=== PATIENT | female | born 1960 | race Hispanic/Latino ===

== ENCOUNTER 2018-09-08 11:41 | Inpatient (IN) | payer OTHER ==
[~2018-09-08] VITALS: Ht 160 cm; Wt 106.6 kg
[~2018-09-08 11:41] MED LIST: ANASTROZOLE1 MG PO; ASPIR 8181 MG PO; ATORVASTATIN CA20 MG PO; BISOPROLOL FUMAR5 MG PO; BISOPROLOL-HCT1 EAC1 PO; GLYXAMBI PO; MELOXICAM15 MG PO; POTASSIUM CL 225 MEQ PO; TORSEMIDE10 MG PO; TRAMADOL-ACETAMI1 EA PO; ULTRAM 50MG50 MG PO; VITAMIN D1000 UNI1 PO; VITAMIN D250000 UNIT PO; ZEBETA10 MG PO; tylenol PO
--- OUTSIDE RECORDS SUMMARY | 2018-09-08 11:44 | XMS REPORT | Clinical Summary ---
Author Author [facility] Address Unknown Phone Unavailable Care Team Providers Care Senior Executive Compensation Analyst Name Role Phone Rosalva Felixibal Vineet PCP Unavailable Allergies Comments Active Allergy Reactions Severity Noted Date Experiences tingling. Pt states she is allergic to Lipitor (name brand) but not allergic to Atorvastatin (generic). Atorvastatin Other (See 04/11/2016 Comments) Medications End Date Status Medication Sig Dispensed Refills Start Date Active aspirin 81 MG EC tablet Take 81 mg by 0 mouth daily. Active atorvastatin (LIPITOR) 10 Take 10 mg by 0 MG tablet mouth daily. Active cholecalciferol, vitamin Take 5,000 0 D3, 5,000 unit Tab Units by mouth once a week. Active docusate sodium (COLACE) Take 1 60 capsule 0 100 MG capsule capsule (100 7 mg total) by mouth 2 (two) times daily. Active Problems Problem Noted Date Acute pulmonary insufficiency following thoracic surgery 04/13/2016 Morbid (severe) obesity due to excess calories 04/13/2016 Acute blood loss as cause of postoperative anemia 04/13/2016 S/P AVR 04/13/2016 Aortic stenosis 04/11/2016 HTN (hypertension) 04/11/2016 Type 2 diabetes mellitus without complication 04/11/2016 Breast CA 04/11/2016 Social History Date Tobacco Use Types Packs/Day Years Used Never Smoker Alcohol Use Drinks/Week oz/Week Comments No Sex Assigned at Date Recorded Not on file Industry Job Start Date Occupation Not on file Not on file Not on file Travel End Travel History Travel Start No recent travel history available. 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 Manufactur er 10/17/2017 TFGT-23A / [id number] / N/A Valve Tiss Trifecta W/Gld 23mm Valves N/A: Heart [facility] [employer] Tfgt-23a - [id number] MED:CARDIA Implanted: Qty: 1 on 04/12/2016 by Angel Lees MD Results Not on fileafter 09/07/2017 Insurance Payer Benefit Subscriber ID Type Phone Address Plan / Group [employer] xxxxxxxxxx [employer] Advance Directives For more information, please contact: [address] [address] Date Inactivated Comments Code Status Date Activated 04/19/2016 4:19 PM Full Code 04/12/2016 11:05 PM This code status was determined by: 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
--- OUTSIDE RECORDS SUMMARY | 2018-09-08 11:45 | XMS REPORT ---
Author Author [facility] Address Unknown Phone Unavailable Care Team Providers Care Production Line Manager Name Role Phone YONI SOLOMON Unavailable Unavailable Problems This patient has no known problems. Allergies, Adverse Reactions, Alerts This patient has no known allergies or adverse reactions. Medications This patient has no known medications. Results Test Description Test Time Test Comments Text Results Atomic Results Result Comments POCT-GLUCOSE METER 2016-04-19 08:27:00 POC-GLUCOSE METER (BEAKER) (test lwce=4440) 111 mg/dL 70-110 TESTED AT [facility] [address] [facility] [address] [id number] 07:20:00* Test Item Value Reference Range Comments MAGNESIUM (BEAKER) (test cgyl=138) 1.9 mg/dL 1.6-2.6 BASIC METABOLIC [id number] 07:20:00* Test Item Value Reference Range Comments SODIUM (BEAKER) (test nyck=525) 138 meq/L 136-145 POTASSIUM (BEAKER) (test adlt=118) 4.7 meq/L 3.5-5.1 CHLORIDE (BEAKER) (test dkwx=760) 102 meq/L 98-107 CO2 (BEAKER) (test ehvl=825) 28 meq/L 22-29 BLOOD UREA NITROGEN (BEAKER) (test ccww=885) 10 mg/dL 7-21 CREATININE (BEAKER) (test kdha=710) 0.62 mg/dL 0.57-1.25 GLUCOSE RANDOM (BEAKER) (test byfa=317) 108 mg/dL 70-105 CALCIUM (BEAKER) (test kkcj=350) 9.1 mg/dL 8.4-10.2 EGFR (BEAKER) (test taiu=0640) 99 mL/min/1.73 sq m ESTIMATED GFR IS NOT ACCURATE CREATININE CLEARANCE IN PREDICTING GLOMERULAR FILTRATION RATE. ESTIMATED GFR IS NOT APPLICABLE FOR DIALYSIS PATIENTS. POCT-GLUCOSE [id number] 20:48:00* Test Item Value Reference Range Comments POC-GLUCOSE METER (BEAKER) (test pwfi=8377) 139 mg/dL 70-110 TESTED AT [facility] [address] [facility] [address] POCT-GLUCOSE [id number] 17:56:00* Test Item Value Reference Range Comments POC-GLUCOSE METER (BEAKER) (test nfvo=9090) 135 mg/dL 70-110 TESTED AT [facility] [address] [facility] [address] CBC W/PLT COUNT & AUTO [id number] 12:53:00* Test Item Value Reference Range Comments WHITE BLOOD CELL COUNT (BEAKER) (test ijns=769) 7.9 K/ L 4.0-10.0 RED BLOOD CELL COUNT (BEAKER) (test hmal=090) 3.19 M/ L 4.00-5.00 HEMOGLOBIN (BEAKER) (test tsot=809) 9.9 GM/DL 12.0-15.0 HEMATOCRIT (BEAKER) (test pqwc=625) 29.7 % 36.0-45.0 MEAN CORPUSCULAR VOLUME (BEAKER) (test fsuw=535) 93.4 fL 82.0-99.0 MEAN CORPUSCULAR HEMOGLOBIN (BEAKER) (test yxmq=264) 31.2 pg 27.0-33.0 MEAN CORPUSCULAR HEMOGLOBIN CONC (BEAKER) (test igdf=819) 33.4 GM/DL 32.0-36.0 RED CELL DISTRIBUTION WIDTH (BEAKER) (test ioob=444) 12.8 % 10.3-14.2 PLATELET COUNT (BEAKER) (test yzoi=508) 123 K/CU MM 150-430 MEAN PLATELET VOLUME (BEAKER) (test xrwz=589) 8.8 fL 6.5-10.5 NUCLEATED RED BLOOD CELLS (BEAKER) (test bgxx=623) 0 /100 WBC 0-0 NEUTROPHILS RELATIVE PERCENT (BEAKER) (test mhof=087) 57 % LYMPHOCYTES RELATIVE PERCENT (BEAKER) (test pukq=855) 32 % MONOCYTES RELATIVE PERCENT (BEAKER) (test wsuq=698) 9 % EOSINOPHILS RELATIVE PERCENT (BEAKER) (test gtvi=094) 1 % BASOPHILS RELATIVE PERCENT (BEAKER) (test tyqf=610) 0 % NEUTROPHILS ABSOLUTE COUNT (BEAKER) (test lqzs=822) 4.51 K/ L 1.80-8.00 LYMPHOCYTES ABSOLUTE COUNT (BEAKER) (test xmja=691) 2.56 K/ L 1.48-4.50 MONOCYTES ABSOLUTE COUNT (BEAKER) (test bruz=432) 0.69 K/ L 0.00-1.30 EOSINOPHILS ABSOLUTE COUNT (BEAKER) (test elei=882) 0.10 K/ L 0.00-0.50 BASOPHILS ABSOLUTE COUNT (BEAKER) (test xlqx=088) 0.04 K/ L 0.00-0.20 0.00POCT-GLUCOSE [id number] 12:12:00* Test Item Value Reference Range Comments POC-GLUCOSE METER (BEAKER) (test eyhh=2683) 113 mg/dL 70-110 TESTED AT [place] [id number] [facility] [address] POCT-GLUCOSE [id number] 08:11:00* Test Item Value Reference Range Comments POC-GLUCOSE METER (BEAKER) (test cbnh=4631) 117 mg/dL 70-110 TESTED AT [address] [address] [id number] 06:56:00* Test Item Value Reference Range Comments MAGNESIUM (BEAKER) (test ctvb=383) 1.9 mg/dL 1.6-2.6 BASIC METABOLIC [id number] 06:56:00* Test Item Value Reference Range Comments SODIUM (BEAKER) (test urgj=242) 137 meq/L 136-145 POTASSIUM (BEAKER) (test bbbz=919) 4.4 meq/L 3.5-5.1 CHLORIDE (BEAKER) (test ycho=327) 100 meq/L 98-107 CO2 (BEAKER) (test caxo=259) 29 meq/L 22-29 BLOOD UREA NITROGEN (BEAKER) (test ffno=440) 12 mg/dL 7-21 CREATININE (BEAKER) (test qcou=664) 0.61 mg/dL 0.57-1.25 GLUCOSE RANDOM (BEAKER) (test jqyp=961) 105 mg/dL 70-105 CALCIUM (BEAKER) (test tgoh=924) 8.7 mg/dL 8.4-10.2 EGFR (BEAKER) (test czch=6869) 101 mL/min/1.73 sq m ESTIMATED GFR IS NOT ACCURATE CREATININE CLEARANCE IN PREDICTING GLOMERULAR FILTRATION RATE. ESTIMATED GFR IS NOT APPLICABLE FOR DIALYSIS PATIENTS. POCT-GLUCOSE [id number] 06:54:00* Test Item Value Reference Range Comments POC-GLUCOSE METER (BEAKER) (test jxdp=0136) 129 mg/dL 70-110 TESTED AT [address] [address] POCT-GLUCOSE [id number] 17:36:00* Test Item Value Reference Range Comments POC-GLUCOSE METER (BEAKER) (test tpex=1075) 107 mg/dL 70-110 TESTED AT [address] [address] POCT-GLUCOSE [id number] 12:40:00* Test Item Value Reference Range Comments POC-GLUCOSE METER (BEAKER) (test eurw=1489) 117 mg/dL 70-110 TESTED AT [address] [address] POCT-GLUCOSE [id number] 08:03:00* Test Item Value Reference Range Comments POC-GLUCOSE METER (BEAKER) (test dxpo=3603) 96 mg/dL 70-110 TESTED AT [address] [address] [id number] 05:52:00* Test Item Value Reference Range Comments MAGNESIUM (BEAKER) (test lfke=178) 2.0 mg/dL 1.6-2.6 BASIC METABOLIC [id number] 05:52:00* Test Item Value Reference Range Comments SODIUM (BEAKER) (test tlji=865) 140 meq/L 136-145 POTASSIUM (BEAKER) (test omdn=174) 3.5 meq/L 3.5-5.1 CHLORIDE (BEAKER) (test uroq=461) 100 meq/L 98-107 CO2 (BEAKER) (test wsvb=729) 27 meq/L 22-29 BLOOD UREA NITROGEN (BEAKER) (test pozy=788) 12 mg/dL 7-21 CREATININE (BEAKER) (test ljql=765) 0.63 mg/dL 0.57-1.25 GLUCOSE RANDOM (BEAKER) (test mpri=969) 105 mg/dL 70-105 CALCIUM (BEAKER) (test czub=980) 8.7 mg/dL 8.4-10.2 EGFR (BEAKER) (test dyjr=1087) 97 mL/min/1.73 sq m ESTIMATED GFR IS NOT ACCURATE CREATININE CLEARANCE IN PREDICTING GLOMERULAR FILTRATION RATE. ESTIMATED GFR IS NOT APPLICABLE FOR DIALYSIS PATIENTS. POCT-GLUCOSE [id number] 21:56:00* Test Item Value Reference Range Comments POC-GLUCOSE METER (BEAKER) (test lnoc=6987) 145 mg/dL 70-110 TESTED AT [facility] [address] [facility] [address] POCT-GLUCOSE [id number] 16:58:00* Test Item Value Reference Range Comments POC-GLUCOSE METER (BEAKER) (test trlo=4152) 129 mg/dL 70-110 TESTED AT [facility] [address] [facility] [address] CBC W/PLT COUNT & AUTO [id number] 16:56:00* Test Item Value Reference Range Comments WHITE BLOOD CELL COUNT (BEAKER) (test ifio=079) 6.2 K/ L 4.0-10.0 RED BLOOD CELL COUNT (BEAKER) (test cmyt=804) 3.24 M/ L 4.00-5.00 HEMOGLOBIN (BEAKER) (test jvix=281) 9.5 GM/DL 12.0-15.0 HEMATOCRIT (BEAKER) (test oiac=883) 29.0 % 36.0-45.0 MEAN CORPUSCULAR VOLUME (BEAKER) (test dbhm=433) 89.6 fL 82.0-99.0 MEAN CORPUSCULAR HEMOGLOBIN (BEAKER) (test fpgv=076) 29.5 pg 27.0-33.0 MEAN CORPUSCULAR HEMOGLOBIN CONC (BEAKER) (test vmaw=495) 32.9 GM/DL 32.0-36.0 RED CELL DISTRIBUTION WIDTH (BEAKER) (test hzmz=780) 13.6 % 10.3-14.2 PLATELET COUNT (BEAKER) (test bazu=250) 103 K/CU MM 150-430 MEAN PLATELET VOLUME (BEAKER) (test rwad=438) 8.1 fL 6.5-10.5 NUCLEATED RED BLOOD CELLS (BEAKER) (test zzcp=424) 0 /100 WBC 0-0 NEUTROPHILS RELATIVE PERCENT (BEAKER) (test rulr=552) 59 % LYMPHOCYTES RELATIVE PERCENT (BEAKER) (test vmkn=275) 30 % MONOCYTES RELATIVE PERCENT (BEAKER) (test gzdf=145) 10 % EOSINOPHILS RELATIVE PERCENT (BEAKER) (test bcyq=424) 1 % BASOPHILS RELATIVE PERCENT (BEAKER) (test egmq=271) 1 % NEUTROPHILS ABSOLUTE COUNT (BEAKER) (test thyb=482) 3.63 K/ L 1.80-8.00 LYMPHOCYTES ABSOLUTE COUNT (BEAKER) (test mpot=076) 1.83 K/ L 1.48-4.50 MONOCYTES ABSOLUTE COUNT (BEAKER) (test azyt=235) 0.61 K/ L 0.00-1.30 EOSINOPHILS ABSOLUTE COUNT (BEAKER) (test fycp=706) 0.08 K/ L 0.00-0.50 BASOPHILS ABSOLUTE COUNT (BEAKER) (test gmfr=872) 0.04 K/ L 0.00-0.20 [id number] 06:34:00* Test Item Value Reference Range Comments MAGNESIUM (BEAKER) (test igpm=316) 1.6 mg/dL 1.6-2.6 BASIC METABOLIC [id number] 06:34:00* Test Item Value Reference Range Comments SODIUM (BEAKER) (test wgyw=254) 138 meq/L 136-145 POTASSIUM (BEAKER) (test ncws=507) 3.0 meq/L 3.5-5.1 CHLORIDE (BEAKER) (test icjn=791) 100 meq/L 98-107 CO2 (BEAKER) (test lmev=841) 28 meq/L 22-29 BLOOD UREA NITROGEN (BEAKER) (test bwnv=779) 12 mg/dL 7-21 CREATININE (BEAKER) (test qywr=704) 0.60 mg/dL 0.57-1.25 GLUCOSE RANDOM (BEAKER) (test cbrb=299) 99 mg/dL 70-105 CALCIUM (BEAKER) (test ovud=500) 8.3 mg/dL 8.4-10.2 EGFR (BEAKER) (test dxnf=6090) 103 mL/min/1.73 sq m ESTIMATED GFR IS NOT ACCURATE CREATININE CLEARANCE IN PREDICTING GLOMERULAR FILTRATION RATE. ESTIMATED GFR IS NOT APPLICABLE FOR DIALYSIS PATIENTS. CBC W/PLT COUNT & AUTO [id number] 05:54:00* Test Item Value Reference Range Comments WHITE BLOOD CELL COUNT (BEAKER) (test eucg=873) 6.5 K/ L 4.0-10.0 RED BLOOD CELL COUNT (BEAKER) (test tvak=753) 2.92 M/ L 4.00-5.00 HEMOGLOBIN (BEAKER) (test lptg=306) 8.9 GM/DL 12.0-15.0 HEMATOCRIT (BEAKER) (test exzj=979) 26.8 % 36.0-45.0 MEAN CORPUSCULAR VOLUME (BEAKER) (test nckn=401) 91.7 fL 82.0-99.0 MEAN CORPUSCULAR HEMOGLOBIN (BEAKER) (test grwd=099) 30.4 pg 27.0-33.0 MEAN CORPUSCULAR HEMOGLOBIN CONC (BEAKER) (test kcth=089) 33.2 GM/DL 32.0-36.0 RED CELL DISTRIBUTION WIDTH (BEAKER) (test agum=557) 13.4 % 10.3-14.2 PLATELET COUNT (BEAKER) (test bbat=211) 67 K/CU MM 150-430 MEAN PLATELET VOLUME (BEAKER) (test deum=986) 8.4 fL 6.5-10.5 NUCLEATED RED BLOOD CELLS (BEAKER) (test icnz=162) 0 /100 WBC 0-0 NEUTROPHILS RELATIVE PERCENT (BEAKER) (test qubs=644) 62 % LYMPHOCYTES RELATIVE PERCENT (BEAKER) (test obsd=997) 27 % MONOCYTES RELATIVE PERCENT (BEAKER) (test pqla=084) 9 % EOSINOPHILS RELATIVE PERCENT (BEAKER) (test leoo=878) 2 % BASOPHILS RELATIVE PERCENT (BEAKER) (test yyhx=434) 0 % NEUTROPHILS ABSOLUTE COUNT (BEAKER) (test wqkq=077) 4.01 K/ L 1.80-8.00 LYMPHOCYTES ABSOLUTE COUNT (BEAKER) (test lwij=426) 1.73 K/ L 1.48-4.50 MONOCYTES ABSOLUTE COUNT (BEAKER) (test vrnc=217) 0.58 K/ L 0.00-1.30 EOSINOPHILS ABSOLUTE COUNT (BEAKER) (test ypcb=812) 0.14 K/ L 0.00-0.50 BASOPHILS ABSOLUTE COUNT (BEAKER) (test riwr=757) 0.02 K/ L 0.00-0.20 [id number] 02:01:00* Test Item Value Reference Range Comments MAGNESIUM (BEAKER) (test gplg=781) 1.8 mg/dL 1.6-2.6 BASIC METABOLIC [id number] 02:01:00* Test Item Value Reference Range Comments SODIUM (BEAKER) (test epqz=613) 138 meq/L 136-145 POTASSIUM (BEAKER) (test swuq=571) 3.9 meq/L 3.5-5.1 CHLORIDE (BEAKER) (test lyre=957) 104 meq/L 98-107 CO2 (BEAKER) (test zvaa=001) 27 meq/L 22-29 BLOOD UREA NITROGEN (BEAKER) (test ttii=805) 14 mg/dL 7-21 CREATININE (BEAKER) (test apql=849) 0.60 mg/dL 0.57-1.25 GLUCOSE RANDOM (BEAKER) (test peys=007) 108 mg/dL 70-105 CALCIUM (BEAKER) (test wbji=803) 8.1 mg/dL 8.4-10.2 EGFR (BEAKER) (test wtbo=9620) 103 mL/min/1.73 sq m ESTIMATED GFR IS NOT ACCURATE CREATININE CLEARANCE IN PREDICTING GLOMERULAR FILTRATION RATE. ESTIMATED GFR IS NOT APPLICABLE FOR DIALYSIS PATIENTS. POCT-GLUCOSE [id number] 22:02:00* Test Item Value Reference Range Comments POC-GLUCOSE METER (BEAKER) (test bkfi=0018) 135 mg/dL 70-110 TESTED AT [address] [address] POCT-GLUCOSE [id number] 18:19:00* Test Item Value Reference Range Comments POC-GLUCOSE METER (BEAKER) (test agag=7322) 183 mg/dL 70-110 TESTED AT [address] [address] POCT-GLUCOSE [id number] 12:05:00* Test Item Value Reference Range Comments POC-GLUCOSE METER (BEAKER) (test fybq=7891) 133 mg/dL 70-110 TESTED AT [address] [address] POCT-GLUCOSE [id number] 07:49:00* Test Item Value Reference Range Comments POC-GLUCOSE METER (BEAKER) (test lgsp=8952) 160 mg/dL 70-110 TESTED AT [address] [address] BASIC METABOLIC [id number] 04:39:00* Test Item Value Reference Range Comments SODIUM (BEAKER) (test yvuf=452) 140 meq/L 136-145 POTASSIUM (BEAKER) (test wvuk=077) 3.9 meq/L 3.5-5.1 CHLORIDE (BEAKER) (test fxsn=574) 109 meq/L 98-107 CO2 (BEAKER) (test znjd=810) 24 meq/L 22-29 BLOOD UREA NITROGEN (BEAKER) (test zlkv=753) 16 mg/dL 7-21 CREATININE (BEAKER) (test itqc=810) 0.70 mg/dL 0.57-1.25 GLUCOSE RANDOM (BEAKER) (test wehd=344) 141 mg/dL 70-105 CALCIUM (BEAKER) (test odup=754) 8.1 mg/dL 8.4-10.2 EGFR (BEAKER) (test nzwk=6849) 86 mL/min/1.73 sq m ESTIMATED GFR IS NOT ACCURATE CREATININE CLEARANCE IN PREDICTING GLOMERULAR FILTRATION RATE. ESTIMATED GFR IS NOT APPLICABLE FOR DIALYSIS PATIENTS. CBC W/PLT COUNT & AUTO [id number] 04:14:00* Test Item Value Reference Range Comments WHITE BLOOD CELL COUNT (BEAKER) (test yint=096) 6.4 K/ L 4.0-10.0 RED BLOOD CELL COUNT (BEAKER) (test snis=655) 2.95 M/ L 4.00-5.00 HEMOGLOBIN (BEAKER) (test njra=717) 9.3 GM/DL 12.0-15.0 HEMATOCRIT (BEAKER) (test jtog=055) 27.5 % 36.0-45.0 MEAN CORPUSCULAR VOLUME (BEAKER) (test llrk=371) 93.0 fL 82.0-99.0 MEAN CORPUSCULAR HEMOGLOBIN (BEAKER) (test ufbv=724) 31.4 pg 27.0-33.0 MEAN CORPUSCULAR HEMOGLOBIN CONC (BEAKER) (test pqzy=348) 33.8 GM/DL 32.0-36.0 RED CELL DISTRIBUTION WIDTH (BEAKER) (test quxo=878) 12.9 % 10.3-14.2 PLATELET COUNT (BEAKER) (test duqf=184) 59 K/CU MM 150-430 MEAN PLATELET VOLUME (BEAKER) (test uclj=112) 8.6 fL 6.5-10.5 NUCLEATED RED BLOOD CELLS (BEAKER) (test qsrt=100) 0 /100 WBC 0-0 NEUTROPHILS RELATIVE PERCENT (BEAKER) (test cqzf=203) 62 % LYMPHOCYTES RELATIVE PERCENT (BEAKER) (test vwxh=362) 22 % MONOCYTES RELATIVE PERCENT (BEAKER) (test icqh=694) 15 % EOSINOPHILS RELATIVE PERCENT (BEAKER) (test tfch=331) 1 % BASOPHILS RELATIVE PERCENT (BEAKER) (test nmxt=333) 1 % NEUTROPHILS ABSOLUTE COUNT (BEAKER) (test hqre=229) 3.95 K/ L 1.80-8.00 LYMPHOCYTES ABSOLUTE COUNT (BEAKER) (test gvor=543) 1.41 K/ L 1.48-4.50 MONOCYTES ABSOLUTE COUNT (BEAKER) (test hmaq=192) 0.96 K/ L 0.00-1.30 EOSINOPHILS ABSOLUTE COUNT (BEAKER) (test erky=037) 0.04 K/ L 0.00-0.50 BASOPHILS ABSOLUTE COUNT (BEAKER) (test ryyc=262) 0.03 K/ L 0.00-0.20 0.00POCT-GLUCOSE [id number] 18:21:00* Test Item Value Reference Range Comments POC-GLUCOSE METER (BEAKER) (test trwh=1782) 148 mg/dL 70-110 TESTED AT [address] [address] POCT-GLUCOSE [id number] 17:29:00* Test Item Value Reference Range Comments POC-GLUCOSE METER (BEAKER) (test yvyi=5437) 147 mg/dL 70-110 TESTED AT [address] [address] POCT-GLUCOSE [id number] 15:32:00* Test Item Value Reference Range Comments POC-GLUCOSE METER (BEAKER) (test hwql=1249) 133 mg/dL 70-110 TESTED AT [address] [address] TROPONIN [id number] 10:37:00* Test Item Value Reference Range Comments TROPONIN I (BEAKER) (test uvoi=079) 5.15 ng/mL 0.00-0.03 Effective 12/24/2013: Reference Range ChangeNew: 0.00-0.03 Previous 0.00-0.15T roponin I (TnI) levels must be interpreted in the context of the presenting symp toms and the clinical findings. Elevated TnI levels indicate myocardial damage, but are not specific for ischemic heart disease. Elevated TnI levels are seen in patients with other cardiac conditions (including myocarditis and congestive he art failure), and slight TnI elevations occur in patients with other conditions, including sepsis, renal failure, acidosis, acute neurological disease, and pers istent tachyarrhythmia.CREATINE KINASE (CK), TOTAL AND [id number] 10:11:00* Test Item Value Reference Range Comments CREATINE KINASE TOTAL (BEAKER) (test qxjt=415) 455 U/L 29-200 CREATINE KINASE-MB (BEAKER) (test shhp=901) 13.0 ng/mL 0.0-6.6 CREATINE KINASE-MB INDEX (BEAKER) (test wajj=944) 2.9 % Effective 12/24/2013: CK-MB Reference Range ChangeNew: 0.0-6.6 Previous: 0.0- 4.9CK-MB Reference Range:<6.7 Normal6.7-10.0 Borderline>10.0 Abnormal BLOOD GAS, [id number] 09:20:00* Test Item Value Reference Range Comments PH ARTERIAL (BEAKER) (test zpbx=823) 7.39 7.35-7.45 PCO2 ARTERIAL (BEAKER) (test pjex=426) 44 mmHg 35-45 PO2 ARTERIAL (BEAKER) (test ttis=708) 116 mmHg 80-90 O2 SATURATION ARTERIAL (BEAKER) (test qtxb=002) 98.1 % 96.0-97.0 HCO3 ARTERIAL (BEAKER) (test hxnp=612) 26 mmol/L 21-29 BASE EXCESS ARTERIAL (BEAKER) (test zela=447) 0.8 mmol/L -2.0-3.0 PATIENT TEMPERATURE (BEAKER) (test zhso=5557) 37.9 C FIO2 (BEAKER) (test ewtw=2664) 36.0 % POCT-GLUCOSE [id number] 09:15:00* Test Item Value Reference Range Comments POC-GLUCOSE METER (BEAKER) (test dmss=0459) 115 mg/dL 70-110 TESTED AT [address] [address] POCT-GLUCOSE [id number] 06:16:00* Test Item Value Reference Range Comments POC-GLUCOSE METER (BEAKER) (test taki=1367) 148 mg/dL 70-110 TESTED AT [address] [address] POCT-GLUCOSE [id number] 06:16:00* Test Item Value Reference Range Comments POC-GLUCOSE METER (BEAKER) (test lvjz=4826) 167 mg/dL 70-110 TESTED AT [place] [id number] [facility] [address] POCT-GLUCOSE [id number] 06:16:00* Test Item Value Reference Range Comments POC-GLUCOSE METER (BEAKER) (test ipuk=9295) 158 mg/dL 70-110 TESTED AT [place] [id number] [facility] [address] BLOOD GAS, [id number] 04:38:00* Test Item Value Reference Range Comments PH ARTERIAL (BEAKER) (test pkse=942) 7.31 7.35-7.45 PCO2 ARTERIAL (BEAKER) (test iflv=665) 47 mmHg 35-45 PO2 ARTERIAL (BEAKER) (test zqqe=649) 255 mmHg 80-90 O2 SATURATION ARTERIAL (BEAKER) (test xbph=418) 99.5 % 96.0-97.0 HCO3 ARTERIAL (BEAKER) (test nepq=313) 22 mmol/L 21-29 BASE EXCESS ARTERIAL (BEAKER) (test hxxl=240) -3.4 mmol/L -2.0-3.0 PATIENT TEMPERATURE (BEAKER) (test kpcs=2116) 38.5 C FIO2 (BEAKER) (test esvy=2312) 20.0 % BASIC METABOLIC [id number] 03:01:00* Test Item Value Reference Range Comments SODIUM (BEAKER) (test eimi=049) 142 meq/L 136-145 POTASSIUM (BEAKER) (test qgyp=992) 3.7 meq/L 3.5-5.1 CHLORIDE (BEAKER) (test uypj=493) 112 meq/L 98-107 CO2 (BEAKER) (test ssnc=461) 23 meq/L 22-29 BLOOD UREA NITROGEN (BEAKER) (test xlkj=389) 14 mg/dL 7-21 CREATININE (BEAKER) (test bfgo=660) 0.73 mg/dL 0.57-1.25 GLUCOSE RANDOM (BEAKER) (test bzmj=866) 170 mg/dL 70-105 CALCIUM (BEAKER) (test odjz=643) 8.4 mg/dL 8.4-10.2 EGFR (BEAKER) (test colz=4607) 82 mL/min/1.73 sq m ESTIMATED GFR IS NOT ACCURATE CREATININE CLEARANCE IN PREDICTING GLOMERULAR FILTRATION RATE. ESTIMATED GFR IS NOT APPLICABLE FOR DIALYSIS PATIENTS. CBC W/PLT COUNT & AUTO [id number] 03:00:00* Test Item Value Reference Range Comments WHITE BLOOD CELL COUNT (BEAKER) (test eeqs=512) 11.4 K/ L 4.0-10.0 RED BLOOD CELL COUNT (BEAKER) (test dlmu=432) 3.31 M/ L 4.00-5.00 HEMOGLOBIN (BEAKER) (test wmzw=320) 10.3 GM/DL 12.0-15.0 HEMATOCRIT (BEAKER) (test fnan=984) 29.9 % 36.0-45.0 MEAN CORPUSCULAR VOLUME (BEAKER) (test fjhx=969) 90.3 fL 82.0-99.0 MEAN CORPUSCULAR HEMOGLOBIN (BEAKER) (test qkci=277) 31.0 pg 27.0-33.0 MEAN CORPUSCULAR HEMOGLOBIN CONC (BEAKER) (test holo=422) 34.3 GM/DL 32.0-36.0 RED CELL DISTRIBUTION WIDTH (BEAKER) (test oiad=207) 13.8 % 10.3-14.2 PLATELET COUNT (BEAKER) (test dlmz=323) 69 K/CU MM 150-430 MEAN PLATELET VOLUME (BEAKER) (test dkvi=815) 8.2 fL 6.5-10.5 NUCLEATED RED BLOOD CELLS (BEAKER) (test rsyg=805) 0 /100 WBC 0-0 NEUTROPHILS RELATIVE PERCENT (BEAKER) (test pody=564) 72 % LYMPHOCYTES RELATIVE PERCENT (BEAKER) (test xuot=908) 19 % MONOCYTES RELATIVE PERCENT (BEAKER) (test vvhf=356) 9 % EOSINOPHILS RELATIVE PERCENT (BEAKER) (test owqr=302) 0 % BASOPHILS RELATIVE PERCENT (BEAKER) (test ptwl=689) 0 % NEUTROPHILS ABSOLUTE COUNT (BEAKER) (test cvdg=134) 8.19 K/ L 1.80-8.00 LYMPHOCYTES ABSOLUTE COUNT (BEAKER) (test fqkl=367) 2.12 K/ L 1.48-4.50 MONOCYTES ABSOLUTE COUNT (BEAKER) (test gvww=201) 1.07 K/ L 0.00-1.30 EOSINOPHILS ABSOLUTE COUNT (BEAKER) (test igvd=063) 0.04 K/ L 0.00-0.50 BASOPHILS ABSOLUTE COUNT (BEAKER) (test bhfq=118) 0.01 K/ L 0.00-0.20 0.00BLOOD GAS, [id number] 02:36:00* Test Item Value Reference Range Comments PH ARTERIAL (BEAKER) (test qxfr=327) 7.34 7.35-7.45 PCO2 ARTERIAL (BEAKER) (test naju=573) 44 mmHg 35-45 PO2 ARTERIAL (BEAKER) (test drer=013) 135 mmHg 80-90 O2 SATURATION ARTERIAL (BEAKER) (test btsf=389) 98.5 % 96.0-97.0 HCO3 ARTERIAL (BEAKER) (test paxb=272) 23 mmol/L 21-29 BASE EXCESS ARTERIAL (BEAKER) (test hhgn=520) -2.7 mmol/L -2.0-3.0 PATIENT TEMPERATURE (BEAKER) (test xnja=3746) 37.0 C FIO2 (BEAKER) (test fuhe=2868) 40.0 % BLOOD GAS, [id number] 00:41:00* Test Item Value Reference Range Comments PH ARTERIAL (BEAKER) (test geuk=349) 7.40 7.35-7.45 PCO2 ARTERIAL (BEAKER) (test hydw=518) 37 mmHg 35-45 PO2 ARTERIAL (BEAKER) (test ngov=713) 226 mmHg 80-90 O2 SATURATION ARTERIAL (BEAKER) (test boqv=715) 99.5 % 96.0-97.0 HCO3 ARTERIAL (BEAKER) (test vyqv=938) 23 mmol/L 21-29 BASE EXCESS ARTERIAL (BEAKER) (test pyon=117) -2.2 mmol/L -2.0-3.0 PATIENT TEMPERATURE (BEAKER) (test dquk=8730) 35.4 C FIO2 (BEAKER) (test zpud=8137) 60.0 % OXYGEN SATURATION, [id number] 00:40:00* Test Item Value Reference Range Comments O2 SATURATION (MEASURED) (BEAKER) (test rktw=6006) 72.1 % TROPONIN [id number] 00:07:00* Test Item Value Reference Range Comments TROPONIN I (BEAKER) (test pahp=851) 4.33 ng/mL 0.00-0.03 Effective 12/24/2013: Reference Range ChangeNew: 0.00-0.03 Previous 0.00-0.15T roponin I (TnI) levels must be interpreted in the context of the presenting symp toms and the clinical findings. Elevated TnI levels indicate myocardial damage, but are not specific for ischemic heart disease. Elevated TnI levels are seen in patients with other cardiac conditions (including myocarditis and congestive he art failure), and slight TnI elevations occur in patients with other conditions, including sepsis, renal failure, acidosis, acute neurological disease, and pers istent tachyarrhythmia.CREATINE KINASE (CK), TOTAL AND [id number] 00:00:00* Test Item Value Reference Range Comments CREATINE KINASE TOTAL (BEAKER) (test rhrf=071) 371 U/L 29-200 CREATINE KINASE-MB (BEAKER) (test bhpm=970) 30.0 ng/mL 0.0-6.6 CREATINE KINASE-MB INDEX (BEAKER) (test tmwn=610) 8.1 % Effective 12/24/2013: CK-MB Reference Range ChangeNew: 0.0-6.6 Previous: 0.0- 4.9CK-MB Reference Range:<6.7 Normal6.7-10.0 Borderline>10.0 Abnormal [id number] 23:53:00* Test Item Value Reference Range Comments MAGNESIUM (BEAKER) (test hlzz=518) 2.0 mg/dL 1.6-2.6 Specimen slightly hemolyzed [id number] 23:53:00* Test Item Value Reference Range Comments POTASSIUM (BEAKER) (test hirt=843) 3.6 meq/L 3.5-5.1 Specimen slightly hemolyzed [id number] 23:53:00* Test Item Value Reference Range Comments GLUCOSE RANDOM (BEAKER) (test gnqf=592) 187 mg/dL 70-105 Effective 12/24/2013: Reference Range Change-Adult onlyNew: 70-105 Previous: 70-110BASIC METABOLIC [id number] 23:53:00* Test Item Value Reference Range Comments SODIUM (BEAKER) (test runb=439) 141 meq/L 136-145 POTASSIUM (BEAKER) (test krqr=376) 3.6 meq/L 3.5-5.1 Specimen slightly hemolyzed CHLORIDE (BEAKER) (test yzdx=781) 112 meq/L 98-107 CO2 (BEAKER) (test dyly=358) 21 meq/L 22-29 BLOOD UREA NITROGEN (BEAKER) (test xdgq=139) 14 mg/dL 7-21 CREATININE (BEAKER) (test dpmn=583) 0.67 mg/dL 0.57-1.25 Specimen slightly hemolyzed GLUCOSE RANDOM (BEAKER) (test xkmx=158) 187 mg/dL 70-105 CALCIUM (BEAKER) (test pnha=765) 8.8 mg/dL 8.4-10.2 EGFR (BEAKER) (test zcln=7796) 90 mL/min/1.73 sq m ESTIMATED GFR IS NOT ACCURATE CREATININE CLEARANCE IN PREDICTING GLOMERULAR FILTRATION RATE. ESTIMATED GFR IS NOT APPLICABLE FOR DIALYSIS PATIENTS. PT/[id number] 23:45:00* Test Item Value Reference Range Comments PROTIME (BEAKER) (test fcoo=605) 23.0 seconds 11.7-14.7 INR (BEAKER) (test xdlv=335) 2.0 <=5.9 PARTIAL THROMBOPLASTIN TIME (BEAKER) (test pygt=446) 41.1 seconds 22.5-36.0 RECOMMENDED COUMADIN/WARFARIN INR THERAPY RANGESSTANDARD DOSE: 2.0 - 3.0 Inclu ngozi: PROPHYLAXIS for venous thrombosis, systemic embolization; TREATMENT for sera ous thrombosis and/or pulmonary embolus.HIGH RISK: Target INR is 2.5-3.5 for pat ients with mechanical heart valves.PROTHROMBIN TIME/[id number] 23:44:00* Test Item Value Reference Range Comments PROTIME (BEAKER) (test gelc=107) 23.0 seconds 11.7-14.7 INR (BEAKER) (test kxwx=434) 2.0 <=5.9 RECOMMENDED COUMADIN/WARFARIN INR THERAPY RANGESSTANDARD DOSE: 2.0 - 3.0 Inclu ngozi: PROPHYLAXIS for venous thrombosis, systemic embolization; TREATMENT for sera ous thrombosis and/or pulmonary embolus.HIGH RISK: Target INR is 2.5-3.5 for pat ients with mechanical heart valves.CBC W/PLT COUNT & AUTO [id number] 23:35:00* Test Item Value Reference Range Comments WHITE BLOOD CELL COUNT (BEAKER) (test ytse=590) 18.7 K/ L 4.0-10.0 RED BLOOD CELL COUNT (BEAKER) (test jhsc=882) 3.67 M/ L 4.00-5.00 HEMOGLOBIN (BEAKER) (test fvul=171) 11.6 GM/DL 12.0-15.0 HEMATOCRIT (BEAKER) (test ulql=530) 33.8 % 36.0-45.0 MEAN CORPUSCULAR VOLUME (BEAKER) (test lyiz=032) 92.0 fL 82.0-99.0 MEAN CORPUSCULAR HEMOGLOBIN (BEAKER) (test cvmp=515) 31.5 pg 27.0-33.0 MEAN CORPUSCULAR HEMOGLOBIN CONC (BEAKER) (test bgsi=516) 34.2 GM/DL 32.0-36.0 RED CELL DISTRIBUTION WIDTH (BEAKER) (test vvpq=014) 12.9 % 10.3-14.2 PLATELET COUNT (BEAKER) (test rrgb=601) 94 K/CU MM 150-430 MEAN PLATELET VOLUME (BEAKER) (test rjfa=699) 8.2 fL 6.5-10.5 NUCLEATED RED BLOOD CELLS (BEAKER) (test ofsz=167) 0 /100 WBC 0-0 NEUTROPHILS RELATIVE PERCENT (BEAKER) (test atbi=474) 72 % LYMPHOCYTES RELATIVE PERCENT (BEAKER) (test ijbo=680) 22 % MONOCYTES RELATIVE PERCENT (BEAKER) (test lbdm=235) 6 % EOSINOPHILS RELATIVE PERCENT (BEAKER) (test twwg=704) 0 % BASOPHILS RELATIVE PERCENT (BEAKER) (test ghtl=378) 0 % NEUTROPHILS ABSOLUTE COUNT (BEAKER) (test ghkm=713) 13.40 K/ L 1.80-8.00 LYMPHOCYTES ABSOLUTE COUNT (BEAKER) (test xgen=218) 4.17 K/ L 1.48-4.50 MONOCYTES ABSOLUTE COUNT (BEAKER) (test bonl=103) 1.06 K/ L 0.00-1.30 EOSINOPHILS ABSOLUTE COUNT (BEAKER) (test yljs=735) 0.07 K/ L 0.00-0.50 BASOPHILS ABSOLUTE COUNT (BEAKER) (test prdz=162) 0.03 K/ L 0.00-0.20 0.00BLOOD GAS, [id number] 23:29:00* Test Item Value Reference Range Comments PH ARTERIAL (BEAKER) (test moem=559) 7.32 7.35-7.45 PCO2 ARTERIAL (BEAKER) (test dicv=538) 42 mmHg 35-45 PO2 ARTERIAL (BEAKER) (test hhlo=014) 109 mmHg 80-90 O2 SATURATION ARTERIAL (BEAKER) (test asij=679) 97.9 % 96.0-97.0 HCO3 ARTERIAL (BEAKER) (test cnlk=896) 22 mmol/L 21-29 BASE EXCESS ARTERIAL (BEAKER) (test ihom=201) -4.7 mmol/L -2.0-3.0 PATIENT TEMPERATURE (BEAKER) (test nxhi=7572) 35.3 C FIO2 (BEAKER) (test gefc=7448) 60.0 % CALCIUM, [id number] 23:29:00* Test Item Value Reference Range Comments CALCIUM IONIZED (BEAKER) (test iegq=689) 1.25 mmol/L 1.12-1.27 PH, BLOOD (BEAKER) (test imte=8691) 7.30 [id number] 22:40:00* Test Item Value Reference Range Comments ACTIVATED CLOTTING TIME (BEAKER) (test bjtd=095) 142 sec TESTED AT [place] [id number] 22:40:00* Test Item Value Reference Range Comments ACTIVATED CLOTTING TIME (BEAKER) (test sgpr=461) 724 sec TESTED AT [address] [address] [id number] 22:40:00* Test Item Value Reference Range Comments ACTIVATED CLOTTING TIME (BEAKER) (test btbr=533) 472 sec TESTED AT [address] [address] [id number] 22:40:00* Test Item Value Reference Range Comments ACTIVATED CLOTTING TIME (BEAKER) (test oqgk=953) 492 sec TESTED AT [place] [id number] 22:40:00* Test Item Value Reference Range Comments ACTIVATED CLOTTING TIME (BEAKER) (test wxva=791) 482 sec TESTED AT [place] [id number] 22:40:00* Test Item Value Reference Range Comments ACTIVATED CLOTTING TIME (BEAKER) (test xvvg=174) 636 sec TESTED AT [facility] [address] [facility] [place] [address] THROMBOELASTOGRAPH (TEG)[id number] 22:30:00* Test Item Value Reference Range Comments TEG ACTIVATED CLOTTING TIME (BEAKER) (test ciwn=9860) 8.4 minutes 4.0-7.0 TEG FIBRINOGEN ACTIVITY (BEAKER) (test hgmx=2952) 67.8 degrees 61.0-73.0 TEG PLT. AGGREGATION (BEAKER) (test lziz=3644) 62.7 MM 55.0-65.0 TGH ACTIVATED CLOTTING TIME (BEAKER) (test mzex=0524) 8.1 minutes 4.0-7.0 TGH FIBRINOGEN ACTIVITY (BEAKER) (test igtl=4059) 67.8 degrees 61.0-73.0 TGH PLT. AGGREGATION (BEAKER) (test lqwe=6688) 58.5 MM 55.0-65.0 [id number] 22:08:00* Test Item Value Reference Range Comments FIBRINOGEN LEVEL (BEAKER) (test nlbh=039) 231 mg/dl 225-434 [id number] 22:08:00* Test Item Value Reference Range Comments PARTIAL THROMBOPLASTIN TIME (BEAKER) (test eawg=754) 42.6 seconds 22.5-36.0 PROTHROMBIN [id number] 22:07:00* Test Item Value Reference Range Comments PROTIME (BEAKER) (test uzhh=673) 23.5 seconds 11.7-14.7 INR (BEAKER) (test iwql=736) 2.1 <=5.9 RECOMMENDED COUMADIN/WARFARIN INR THERAPY RANGESSTANDARD DOSE: 2.0 - 3.0 Inclu ngozi: PROPHYLAXIS for venous thrombosis, systemic embolization; TREATMENT for sera ous thrombosis and/or pulmonary embolus.HIGH RISK: Target INR is 2.5-3.5 for pat ients with mechanical heart valves.PLATELET [id number] 22:01:00* Test Item Value Reference Range Comments PLATELET COUNT (BEAKER) (test djir=334) 112 K/CU MM 150-430 BLOOD GAS, [id number] 21:49:00* Test Item Value Reference Range Comments PH ARTERIAL (BEAKER) (test ybpi=302) 7.42 7.35-7.45 PCO2 ARTERIAL (BEAKER) (test fthx=803) 34 mmHg 35-45 PO2 ARTERIAL (BEAKER) (test esac=793) 511 mmHg 80-90 O2 SATURATION ARTERIAL (BEAKER) (test jdcz=909) 99.9 % 96.0-97.0 HCO3 ARTERIAL (BEAKER) (test qxru=573) 22 mmol/L 21-29 BASE EXCESS ARTERIAL (BEAKER) (test bmqy=579) -2.3 mmol/L -2.0-3.0 PATIENT TEMPERATURE (BEAKER) (test gayb=2398) 36.2 C FIO2 (BEAKER) (test wtdq=5800) 100.0 % POTASSIUM-STAT [id number] 21:49:00* Test Item Value Reference Range Comments POTASSIUM (BEAKER) (test zrzh=924) 2.8 meq/L 3.6-5.5 GLUCOSE-STAT [id number] 21:49:00* Test Item Value Reference Range Comments GLUCOSE RANDOM (BEAKER) (test hukj=081) 230 mg/dL 70-110 HGB/HCT (H&H) - STAT [id number] 21:49:00* Test Item Value Reference Range Comments HEMOGLOBIN (BEAKER) (test qzze=624) 9.4 g/dL 12.0-15.0 HEMATOCRIT (BEAKER) (test frnn=660) 28.0 % 36.0-45.0 CALCIUM, [id number] 21:49:00* Test Item Value Reference Range Comments CALCIUM IONIZED (BEAKER) (test qqle=039) 1.00 mmol/L 1.12-1.27 PH, BLOOD (BEAKER) (test tlwd=6309) 7.42 SODIUM NA-STAT [id number] 21:48:00* Test Item Value Reference Range Comments SODIUM (BEAKER) (test zbxw=119) 136 meq/L 135-148 BLOOD GAS, [id number] 20:57:00* Test Item Value Reference Range Comments PH ARTERIAL (BEAKER) (test jlzg=779) 7.44 7.35-7.45 PCO2 ARTERIAL (BEAKER) (test irev=846) 40 mmHg 35-45 PO2 ARTERIAL (BEAKER) (test esdw=982) 277 mmHg 80-90 O2 SATURATION ARTERIAL (BEAKER) (test xuda=755) 99.7 % 96.0-97.0 HCO3 ARTERIAL (BEAKER) (test udau=453) 27 mmol/L 21-29 BASE EXCESS ARTERIAL (BEAKER) (test uxiz=788) 2.1 mmol/L -2.0-3.0 PATIENT TEMPERATURE (BEAKER) (test atts=0817) 35.3 C FIO2 (BEAKER) (test xhbc=0998) 65.0 % SODIUM NA-STAT [id number] 20:57:00* Test Item Value Reference Range Comments SODIUM (BEAKER) (test fxdh=971) 129 meq/L 135-148 GLUCOSE-STAT [id number] 20:57:00* Test Item Value Reference Range Comments GLUCOSE RANDOM (BEAKER) (test gmxw=243) 261 mg/dL 70-110 HGB/HCT (H&H) - STAT [id number] 20:57:00* Test Item Value Reference Range Comments HEMOGLOBIN (BEAKER) (test hirr=347) 8.2 g/dL 12.0-15.0 HEMATOCRIT (BEAKER) (test jrui=573) 24.0 % 36.0-45.0 POTASSIUM-STAT [id number] 20:56:00* Test Item Value Reference Range Comments POTASSIUM (BEAKER) (test zpry=062) 5.2 meq/L 3.6-5.5 POTASSIUM-STAT [id number] 20:26:00* Test Item Value Reference Range Comments POTASSIUM (BEAKER) (test wqge=572) 5.4 meq/L 3.6-5.5 BLOOD GAS, [id number] 20:26:00* Test Item Value Reference Range Comments PH ARTERIAL (BEAKER) (test mzfw=183) 7.42 7.35-7.45 PCO2 ARTERIAL (BEAKER) (test vaoj=967) 45 mmHg 35-45 PO2 ARTERIAL (BEAKER) (test iizn=609) 272 mmHg 80-90 O2 SATURATION ARTERIAL (BEAKER) (test cens=838) 99.6 % 96.0-97.0 HCO3 ARTERIAL (BEAKER) (test vdgl=632) 29 mmol/L 21-29 BASE EXCESS ARTERIAL (BEAKER) (test dalb=526) 3.4 mmol/L -2.0-3.0 PATIENT TEMPERATURE (BEAKER) (test emxp=4970) 35.2 C FIO2 (BEAKER) (test oprt=6690) 65.0 % SODIUM NA-STAT [id number] 20:26:00* Test Item Value Reference Range Comments SODIUM (BEAKER) (test gmed=619) 130 meq/L 135-148 GLUCOSE-STAT [id number] 20:26:00* Test Item Value Reference Range Comments GLUCOSE RANDOM (BEAKER) (test zlcp=616) 254 mg/dL 70-110 HGB/HCT (H&H) - STAT [id number] 20:26:00* Test Item Value Reference Range Comments HEMOGLOBIN (BEAKER) (test niey=899) 8.8 g/dL 12.0-15.0 HEMATOCRIT (BEAKER) (test knzm=871) 26.0 % 36.0-45.0 POTASSIUM-STAT [id number] 19:53:00* Test Item Value Reference Range Comments POTASSIUM (BEAKER) (test gqbi=804) 6.1 meq/L 3.6-5.5 BLOOD GAS, [id number] 19:52:00* Test Item Value Reference Range Comments PH ARTERIAL (BEAKER) (test ytvi=123) 7.48 7.35-7.45 PCO2 ARTERIAL (BEAKER) (test hpqn=630) 39 mmHg 35-45 PO2 ARTERIAL (BEAKER) (test wusc=029) 336 mmHg 80-90 O2 SATURATION ARTERIAL (BEAKER) (test ztcl=909) 99.8 % 96.0-97.0 HCO3 ARTERIAL (BEAKER) (test vaoy=909) 29 mmol/L 21-29 BASE EXCESS ARTERIAL (BEAKER) (test lhmm=176) 4.3 mmol/L -2.0-3.0 PATIENT TEMPERATURE (BEAKER) (test shxa=1163) 33.8 C FIO2 (BEAKER) (test duyc=7408) 70.0 % SODIUM NA-STAT [id number] 19:52:00* Test Item Value Reference Range Comments SODIUM (BEAKER) (test yngj=653) 129 meq/L 135-148 GLUCOSE-STAT [id number] 19:52:00* Test Item Value Reference Range Comments GLUCOSE RANDOM (BEAKER) (test kdii=650) 264 mg/dL 70-110 HGB/HCT (H&H) - STAT [id number] 19:52:00* Test Item Value Reference Range Comments HEMOGLOBIN (BEAKER) (test azgt=738) 8.1 g/dL 12.0-15.0 HEMATOCRIT (BEAKER) (test gaxe=141) 24.0 % 36.0-45.0 BLOOD GAS, [id number] 19:26:00* Test Item Value Reference Range Comments PH ARTERIAL (BEAKER) (test tnmh=251) 7.51 7.35-7.45 PCO2 ARTERIAL (BEAKER) (test iyeh=849) 32 mmHg 35-45 PO2 ARTERIAL (BEAKER) (test rptq=554) 360 mmHg 80-90 O2 SATURATION ARTERIAL (BEAKER) (test utmf=335) 99.8 % 96.0-97.0 HCO3 ARTERIAL (BEAKER) (test dnke=255) 25 mmol/L 21-29 BASE EXCESS ARTERIAL (BEAKER) (test izjd=810) 1.5 mmol/L -2.0-3.0 PATIENT TEMPERATURE (BEAKER) (test zfop=3857) 33.3 C FIO2 (BEAKER) (test iejy=3961) 70.0 % SODIUM NA-STAT [id number] 19:26:00* Test Item Value Reference Range Comments SODIUM (BEAKER) (test aitf=723) 130 meq/L 135-148 GLUCOSE-STAT [id number] 19:26:00* Test Item Value Reference Range Comments GLUCOSE RANDOM (BEAKER) (test bcpd=355) 147 mg/dL 70-110 HGB/HCT (H&H) - STAT [id number] 19:26:00* Test Item Value Reference Range Comments HEMOGLOBIN (BEAKER) (test hoyr=663) 8.8 g/dL 12.0-15.0 HEMATOCRIT (BEAKER) (test lrra=431) 26.0 % 36.0-45.0 POTASSIUM-STAT [id number] 19:25:00* Test Item Value Reference Range Comments POTASSIUM (BEAKER) (test hghf=595) 3.5 meq/L 3.6-5.5 SODIUM NA-STAT [id number] 17:55:00* Test Item Value Reference Range Comments SODIUM (BEAKER) (test pmjc=575) 139 meq/L 135-148 POTASSIUM-STAT [id number] 17:55:00* Test Item Value Reference Range Comments POTASSIUM (BEAKER) (test zyth=816) 3.5 meq/L 3.6-5.5 HGB/HCT (H&H) - STAT [id number] 17:55:00* Test Item Value Reference Range Comments HEMOGLOBIN (BEAKER) (test qyye=568) 14.6 g/dL 12.0-15.0 HEMATOCRIT (BEAKER) (test umwu=948) 43.0 % 36.0-45.0 BLOOD GAS, [id number] 17:55:00* Test Item Value Reference Range Comments PH ARTERIAL (BEAKER) (test omiz=039) 7.53 7.35-7.45 PCO2 ARTERIAL (BEAKER) (test beof=712) 33 mmHg 35-45 PO2 ARTERIAL (BEAKER) (test brko=819) 383 mmHg 80-90 O2 SATURATION ARTERIAL (BEAKER) (test yqog=796) 99.8 % 96.0-97.0 HCO3 ARTERIAL (BEAKER) (test yrhg=661) 27 mmol/L 21-29 BASE EXCESS ARTERIAL (BEAKER) (test wtdj=430) 4.4 mmol/L -2.0-3.0 PATIENT TEMPERATURE (BEAKER) (test wgim=2875) 37.0 C GLUCOSE-STAT [id number] 17:55:00* Test Item Value Reference Range Comments GLUCOSE RANDOM (BEAKER) (test peqd=701) 133 mg/dL 70-110 POCT-GLUCOSE [id number] 12:00:00* Test Item Value Reference Range Comments POC-GLUCOSE METER (BEAKER) (test hcuj=1678) 109 mg/dL 70-110 TESTED AT [facility] [address] [facility] [address] POCT-GLUCOSE [id number] 07:22:00* Test Item Value Reference Range Comments POC-GLUCOSE METER (BEAKER) (test igwt=9322) 109 mg/dL 70-110 TESTED AT [facility] [address] [facility] [address] BASIC METABOLIC [id number] 05:58:00* Test Item Value Reference Range Comments SODIUM (BEAKER) (test kdlq=042) 139 meq/L 136-145 POTASSIUM (BEAKER) (test sowb=068) 3.9 meq/L 3.5-5.1 CHLORIDE (BEAKER) (test kkil=479) 98 meq/L 98-107 CO2 (BEAKER) (test zcqv=011) 31 meq/L 22-29 BLOOD UREA NITROGEN (BEAKER) (test kdjg=181) 19 mg/dL 7-21 CREATININE (BEAKER) (test akli=065) 0.79 mg/dL 0.57-1.25 GLUCOSE RANDOM (BEAKER) (test tjrn=745) 121 mg/dL 70-105 CALCIUM (BEAKER) (test veau=485) 9.9 mg/dL 8.4-10.2 EGFR (BEAKER) (test gnqq=3282) 75 mL/min/1.73 sq m ESTIMATED GFR IS NOT ACCURATE CREATININE CLEARANCE IN PREDICTING GLOMERULAR FILTRATION RATE. ESTIMATED GFR IS NOT APPLICABLE FOR DIALYSIS PATIENTS. PROTHROMBIN [id number] 05:53:00* Test Item Value Reference Range Comments PROTIME (BEAKER) (test oyug=050) 14.0 seconds 11.7-14.7 INR (BEAKER) (test jetm=996) 1.1 <=5.9 RECOMMENDED COUMADIN/WARFARIN INR THERAPY RANGESSTANDARD DOSE: 2.0 - 3.0 Inclu ngozi: PROPHYLAXIS for venous thrombosis, systemic embolization; TREATMENT for sera ous thrombosis and/or pulmonary embolus.HIGH RISK: Target INR is 2.5-3.5 for pat ients with mechanical heart valves.CBC W/PLT COUNT & AUTO [id number] 05:52:00* Test Item Value Reference Range Comments WHITE BLOOD CELL COUNT (BEAKER) (test nxed=088) 8.2 K/ L 4.0-10.0 RED BLOOD CELL COUNT (BEAKER) (test exqw=270) 4.96 M/ L 4.00-5.00 HEMOGLOBIN (BEAKER) (test ulbw=836) 14.9 GM/DL 12.0-15.0 HEMATOCRIT (BEAKER) (test sjxx=627) 44.3 % 36.0-45.0 MEAN CORPUSCULAR VOLUME (BEAKER) (test blns=151) 89.4 fL 82.0-99.0 MEAN CORPUSCULAR HEMOGLOBIN (BEAKER) (test maap=345) 30.0 pg 27.0-33.0 MEAN CORPUSCULAR HEMOGLOBIN CONC (BEAKER) (test wysm=628) 33.6 GM/DL 32.0-36.0 RED CELL DISTRIBUTION WIDTH (BEAKER) (test ctkd=030) 14.1 % 10.3-14.2 PLATELET COUNT (BEAKER) (test aojp=055) 180 K/CU MM 150-430 MEAN PLATELET VOLUME (BEAKER) (test bjli=474) 8.0 fL 6.5-10.5 NUCLEATED RED BLOOD CELLS (BEAKER) (test txez=725) 0 /100 WBC 0-0 NEUTROPHILS RELATIVE PERCENT (BEAKER) (test fgsk=092) 49 % LYMPHOCYTES RELATIVE PERCENT (BEAKER) (test zntz=160) 40 % MONOCYTES RELATIVE PERCENT (BEAKER) (test tweg=216) 8 % EOSINOPHILS RELATIVE PERCENT (BEAKER) (test vqff=969) 2 % BASOPHILS RELATIVE PERCENT (BEAKER) (test giaj=346) 1 % NEUTROPHILS ABSOLUTE COUNT (BEAKER) (test qdkk=099) 4.04 K/ L 1.80-8.00 LYMPHOCYTES ABSOLUTE COUNT (BEAKER) (test cxuw=498) 3.31 K/ L 1.48-4.50 MONOCYTES ABSOLUTE COUNT (BEAKER) (test lmrc=366) 0.66 K/ L 0.00-1.30 EOSINOPHILS ABSOLUTE COUNT (BEAKER) (test xqun=148) 0.13 K/ L 0.00-0.50 BASOPHILS ABSOLUTE COUNT (BEAKER) (test wkgo=924) 0.06 K/ L 0.00-0.20 0.00POCT-GLUCOSE [id number] 20:59:00* Test Item Value Reference Range Comments POC-GLUCOSE METER (BEAKER) (test gzol=9933) 115 mg/dL 70-110 TESTED AT [facility] [address] [facility] [address] POCT-GLUCOSE [id number] 17:30:00* Test Item Value Reference Range Comments POC-GLUCOSE METER (BEAKER) (test odnm=7774) 175 mg/dL 70-110 TESTED AT [facility] [address] [facility] [address] HEMOGLOBIN [id number] 15:39:00* Test Item Value Reference Range Comments HEMOGLOBIN A1C (BEAKER) (test hove=443) 5.8 % 4.3-6.1 POCT-GLUCOSE [id number] 15:18:00* Test Item Value Reference Range Comments POC-GLUCOSE METER (BEAKER) (test qkov=4985) 92 mg/dL 70-110 TESTED AT [facility] [address] [facility] [address] BASIC METABOLIC [id number] 14:58:00* Test Item Value Reference Range Comments SODIUM (BEAKER) (test cdtt=271) 136 meq/L 136-145 POTASSIUM (BEAKER) (test pljd=003) 4.7 meq/L 3.5-5.1 Specimen slightly hemolyzed CHLORIDE (BEAKER) (test fagc=363) 99 meq/L 98-107 CO2 (BEAKER) (test ltrf=105) 24 meq/L 22-29 BLOOD UREA NITROGEN (BEAKER) (test mnva=116) 17 mg/dL 7-21 CREATININE (BEAKER) (test tuoj=598) 0.75 mg/dL 0.57-1.25 Specimen slightly hemolyzed GLUCOSE RANDOM (BEAKER) (test beqc=008) 91 mg/dL 70-105 CALCIUM (BEAKER) (test ljdh=756) 9.8 mg/dL 8.4-10.2 EGFR (BEAKER) (test sxfs=1437) 79 mL/min/1.73 sq m ESTIMATED GFR IS NOT ACCURATE CREATININE CLEARANCE IN PREDICTING GLOMERULAR FILTRATION RATE. ESTIMATED GFR IS NOT APPLICABLE FOR DIALYSIS PATIENTS. PROTHROMBIN [id number] 14:55:00* Test Item Value Reference Range Comments PROTIME (BEAKER) (test vjci=393) 14.8 seconds 11.7-14.7 INR (BEAKER) (test ytfy=921) 1.2 <=5.9 RECOMMENDED COUMADIN/WARFARIN INR THERAPY RANGESSTANDARD DOSE: 2.0 - 3.0 Inclu ngozi: PROPHYLAXIS for venous thrombosis, systemic embolization; TREATMENT for sera ous thrombosis and/or pulmonary embolus.HIGH RISK: Target INR is 2.5-3.5 for pat ients with mechanical heart valves.CBC W/PLT COUNT & AUTO [id number] 14:38:00* Test Item Value Reference Range Comments WHITE BLOOD CELL COUNT (BEAKER) (test nwyl=031) 8.0 K/ L 4.0-10.0 RED BLOOD CELL COUNT (BEAKER) (test cbjt=060) 5.05 M/ L 4.00-5.00 HEMOGLOBIN (BEAKER) (test pzng=966) 15.4 GM/DL 12.0-15.0 HEMATOCRIT (BEAKER) (test vlwh=678) 46.0 % 36.0-45.0 MEAN CORPUSCULAR VOLUME (BEAKER) (test ojsu=281) 90.9 fL 82.0-99.0 MEAN CORPUSCULAR HEMOGLOBIN (BEAKER) (test hbif=064) 30.5 pg 27.0-33.0 MEAN CORPUSCULAR HEMOGLOBIN CONC (BEAKER) (test slia=341) 33.6 GM/DL 32.0-36.0 RED CELL DISTRIBUTION WIDTH (BEAKER) (test qkcm=350) 13.0 % 10.3-14.2 PLATELET COUNT (BEAKER) (test skmz=870) 188 K/CU MM 150-430 MEAN PLATELET VOLUME (BEAKER) (test fqzy=311) 8.3 fL 6.5-10.5 NUCLEATED RED BLOOD CELLS (BEAKER) (test zybb=734) 0 /100 WBC 0-0 NEUTROPHILS RELATIVE PERCENT (BEAKER) (test cgvi=671) 49 % LYMPHOCYTES RELATIVE PERCENT (BEAKER) (test ragq=819) 41 % MONOCYTES RELATIVE PERCENT (BEAKER) (test mooz=084) 7 % EOSINOPHILS RELATIVE PERCENT (BEAKER) (test qgkh=565) 2 % BASOPHILS RELATIVE PERCENT (BEAKER) (test kjno=266) 1 % NEUTROPHILS ABSOLUTE COUNT (BEAKER) (test hixb=547) 3.93 K/ L 1.80-8.00 LYMPHOCYTES ABSOLUTE COUNT (BEAKER) (test hfua=071) 3.26 K/ L 1.48-4.50 MONOCYTES ABSOLUTE COUNT (BEAKER) (test gump=279) 0.60 K/ L 0.00-1.30 EOSINOPHILS ABSOLUTE COUNT (BEAKER) (test dwax=180) 0.15 K/ L 0.00-0.50 BASOPHILS ABSOLUTE COUNT (BEAKER) (test xwoz=184) 0.08 K/ L 0.00-0.20 0.00
[2018-09-08] MEDS ORDERED: SODIUM CHLORIDE 0.9% 1000ML 1,000 ML IV SCH (12:00)
[2018-09-08 12:27] LABS: BASOPHILS % 0.4 % (0.0-1.0); EOSINOPHILS % 0.2 % (0.0-6.0); HEMATOCRIT 43.2 % (34.2-44.1); HEMOGLOBIN 14.5 g/dL (12.0-16.0); LYMPHOCYTES # (AUTO) 2.1 (1.0-3.2); MEAN CORPUSCULAR HEMOGLOBIN 28.8 pg (28-32); MEAN CORPUSCULAR HGB CONC 33.6 g/dL (31-35); MEAN CORPUSCULAR VOLUME 85.7 fL (81-99); MONOCYTES # (AUTO) 0.7 (0.2-0.8); MONOCYTES % 6.6 % (4.4-11.3); NEUTROPHILS # (AUTO) 7.3 (2.1-6.9); NEUTROPHILS % 71.1 % (38.7-80.0); PLATELET COUNT 277 x10e3/uL (140-360); RED BLOOD COUNT 5.04 x10e6/uL (3.6-5.1); RED CELL DISTRIBUTION WIDTH 18.5 % (11.7-14.4)
[2018-09-08] MEDS ORDERED: ONDANSETRON HCL INJ 2MG/ML 2ML 2 MG/ML VIAL IV ONE (12:30)
[2018-09-08] MEDS ORDERED: MORPHINE SULFATE 2 MG/ML SYR 1ML IV ONE (12:30)
[2018-09-08 12:33] LABS: CLARITY,URINE HAZY (CLEAR); COLOR,URINE ORANGE (YELLOW); KETONES,URINE TRACE (NEGATIVE); LEUKOCYTE ESTERASE ,URINE TRACE (NEGATIVE); NITRITE,URINE POSITIVE (NEGATIVE); PROTEIN,URINE DIPSTICK 1+ (NEGATIVE)
[2018-09-08 12:34] LABS: BILIRUBIN,URINE LARGE (NEGATIVE)
[2018-09-08 12:40] LABS: WBC,URINE (MAN) 21-50 /HPF (0-5)
[2018-09-08 12:42] LABS: BACTERIA,URINE MANY /HPF; EPITHELIAL CELLS,URINE MANY /LPF; RBC,URINE 0-5 /HPF (0-5)
[2018-09-08 12:51] LABS: ALBUMIN 2.5 g/dL (3.5-5.0); ALBUMIN/GLOBULIN RATIO 0.5 (0.8-2.0); ANION GAP 26.3 mmol/L (8-16); CALCIUM 11.1 mg/dL (8.4-10.2); CREATININE, SERUM 1.09 mg/dL (0.57-1.11); POTASSIUM 4.3 mmol/L (3.5-5.1)
[2018-09-08 13:07] LABS: MAGNESIUM 1.6 MG/DL (1.3-2.1)
[2018-09-08] MEDS ORDERED: CEFTRIAXONE SOD 1 GM/NS 50 ML 50 ML IV ONE (14:30)
--- NOTE | 2018-09-08 14:42 | Diagnostic Imaging Report ---
EXAMINATION: CT of the abdomen and pelvis with contrast. TECHNIQUE: Helical CT images of the abdomen and pelvis were performed from the lung bases to the lesser trochanters after the intravenous administration of 100 cc of Omnipaque 300 and the oral administration of none. Coronal and sagittal reformatted images were obtained.Dose modulation, iterative reconstruction, and/or weight based adjustment of the mA/kV was utilized to reduce the radiation dose to as low as reasonably achievable. COMPARISON: None. CLINICAL HISTORY:Abdominal pain DISCUSSION: ABDOMEN/PELVIS: LOWER THORAX:Right pleural effusion with adjacent atelectasis. Scattered pulmonary nodules including left lower lobe 0.8 cm and 0.6 cm on image 4 and 5. Subpleural 0.6 cm image 14. HEPATOBILIARY: Hepatomegaly with heterogeneous appearance. Caudate lobe is enlarged. No intra-or extrahepatic biliary ductal dilation. The bladder wall thickening. SPLEEN: No splenomegaly. PANCREAS: No focal masses or ductal dilatation. ADRENALS: No adrenal nodules. KIDNEYS/URETERS: No solid mass lesions. Right renal 1.9 cm lesion with Hounsfield of 38. PELVIC ORGANS/BLADDER: The bladder is normal. PERITONEUM/RETROPERITONEUM: Ascites. LYMPH NODES: Lymphadenopathy within the abdomen. Largest long axis dimension 3.6 cm and short axis dimension measures 2.3 cm on image 38. A retroperitoneal conglomerate measures long axis 4.5 cm in short axis 2.5 cm. Additional lymph nodes extend up the retrocrural region. VESSELS: Intact GI TRACT: No distention or wall thickening. Scattered diverticulosis without significant inflammatory change. BONES AND SOFT TISSUE: No bony destructive lesions. No soft tissue abnormalities. IMPRESSION: Lymphadenopathy within the abdomen. Scattered partially visualized pulmonary nodules. Follow-up CT of the chest with contrast recommended nonemergently to fully evaluate the nodules and assess for mediastinal lymphadenopathy. Hepatomegaly with heterogeneous appearance likely reflective of steatosis and other inflammatory process. Evaluation limited for discrete mass. Mild ascites and right pleural effusion. Gallbladder wall thickening likely secondary to hypoproteinemia. Diverticulosis without inflammatory change. Signed by: Dr. Alexis Tafoya M.D. on 09/08/2018 2:39 PM
--- NOTE | 2018-09-08 16:07 | Diagnostic Imaging Report ---
EXAMINATION: Right upper quadrant ultrasound CLINICAL INDICATION: Abdominal pain COMPARISON: CT on September 08, 2018 DISCUSSION: Transverse and longitudinal images of the right upper quadrant were obtained. The liver is increased in size measuring 23centimeters in length in the right midclavicular line and shows increased echogenicity. No focal masses are seen in the liver. There is no intrahepatic biliary dilatation. The common bile duct is normal in caliber and measures 0.4 cm. The main portal vein is normal in caliber and measures 1 cm with normal hepatopetal flow. Gallbladder wall thickening. No stones. Pancreas poorly visualized. The right kidney measures 10.8 centimeters in length. There is normal renal cortical echogenicity and no hydronephrosis, mass or shadowing calculi. The visualized portions of the great vessels are normal. No free fluid is seen. IMPRESSION: Hepatomegaly with increased echogenicity secondary to steatosis or other chronic inflammatory condition. Mild ascites and right effusion. Gallbladder wall thickening likely due to hypoproteinemia Signed by: Dr. Alexis Tafoya M.D. on 09/08/2018 4:03 PM
[2018-09-08] MEDS: SODIUM CHLORIDE 0.9% 1000ML 1,000 ML IV SCH ×2 (16:27→20:46)
[2018-09-08] MEDS ORDERED: MORPHINE SULFATE 2 MG/ML SYR 1ML IV PRN (16:30)
[2018-09-08] MEDS ORDERED: IOPAMIDOL 370 MG/ML 200 ML INFUS..BTL INJ ONE (17:48)
[2018-09-08] MEDS ORDERED: SODIUM CHLORIDE 0.9% 50ML 50 ML ONE (17:48)
[2018-09-08 18:25] VITALS: BP 130/62
--- NOTE | 2018-09-08 18:54 | NUR ---
BEDSIDE SHIFT REPORT PERFORMED, RECEIVED PT LAYING SEMI FOWLERS IN BED, AAOX3, RR EVEN AND NON-LABORED, ON ROOM AIR. NO S/SX OF DISTRESS NOTED. FAMILY AT BEDSIDE. LEFT PT LAYING SEMI FOWLERS IN BED, BED IN LOW LOCKED POSITION, SIDE RAILS UPX2, CALL LIGHT AND PHONE WITHIN REACH.
[2018-09-08 20:00] VITALS: BP 129/62
--- NOTE | 2018-09-08 20:00 | NUR ---
APPLIED ALTERNATING PRESSURE PUMP TO MATTRESS.
[2018-09-08 20:15] VITALS: BP 129/62
[2018-09-08 22:02] VITALS: BP 129/62
[2018-09-08] MEDS ORDERED: FUROSEMIDE40 MG PO (22:31)
[2018-09-08] MEDS ORDERED: POTASSIUM CHLO20 ME1 PO (22:31)
[2018-09-08] MEDS ORDERED: DAPAGLIFLOZIN PO (22:31)
[2018-09-08] MEDS ORDERED: ACETAMINOPHEN650 M2 PO (22:31)
[2018-09-08] MEDS ORDERED: BISOPROLOL-HCT1 EAC2 PO (22:31)
[2018-09-08] MEDS ORDERED: ANASTROZOLE1 MG PO (22:31)
[2018-09-08] MEDS ORDERED: AUGMENTIN 875-1 EACH PO (22:33)
[2018-09-09] VITALS (7 sets, daily range): BP systolic 114–135; BP diastolic 55–62
[2018-09-09] MEDS: SODIUM CHLORIDE 0.9% 1000ML 1,000 ML IV SCH (04:30)
[2018-09-09 06:30] LABS: BASOPHILS % 0.5 % (0.0-1.0); EOSINOPHILS % 0.3 % (0.0-6.0); HEMOGLOBIN 12.2 g/dL (12.0-16.0); LYMPHOCYTES % 23.1 % (18.0-39.1); MEAN CORPUSCULAR HEMOGLOBIN 28.5 pg (28-32); MEAN CORPUSCULAR VOLUME 86.4 fL (81-99); MONOCYTES # (AUTO) 0.7 (0.2-0.8); MONOCYTES % 8.2 % (4.4-11.3); NEUTROPHILS # (AUTO) 5.7 (2.1-6.9); NEUTROPHILS % 65.2 % (38.7-80.0); PLATELET COUNT 210 x10e3/uL (140-360); RED BLOOD COUNT 4.28 x10e6/uL (3.6-5.1); RED CELL DISTRIBUTION WIDTH 18.6 % (11.7-14.4)
[2018-09-09 07:02] LABS: ALBUMIN 2.2 g/dL (3.5-5.0); ALBUMIN/GLOBULIN RATIO 0.5 (0.8-2.0); ANION GAP 19.9 mmol/L (8-16); CALCIUM 10.3 mg/dL (8.4-10.2); CREATININE, SERUM 1.04 mg/dL (0.57-1.11); POTASSIUM 3.9 mmol/L (3.5-5.1)
[2018-09-09] MEDS ORDERED: TRAMADOL HCL 50 MG TAB PO PRN (07:30)
[2018-09-09 07:48] LABS: LYMPHOCYTES % (MANUAL) 19 % (19-48); METAMYELOCYTES % (MANUAL) 1 % (0-0); MONOCYTES % (MANUAL) 13 % (3.4-9.0); NEUTROPHILS % (MANUAL) 67 % (40-74); PLATELET ESTIMATE ADEQUATE; PLATELET MORPHOLOGY COMMENT NORMAL; RBC MORPHOLOGY COMMENT NORMAL
[2018-09-09] MEDS: ANASTROZOLE 1 MG TAB PO SCH (08:49)
[2018-09-09] MEDS: MELOXICAM 7.5 MG TAB PO SCH (08:50)
[2018-09-09] MEDS: FUROSEMIDE 40 MG TAB PO SCH (08:50)
[2018-09-09] MEDS: POTASSIUM CHLORIDE 20 MEQ TAB CR PO SCH (08:50)
[2018-09-09] MEDS ORDERED: DAPAGLIFLOZIN PO SCH (09:00)
[2018-09-09] MEDS ORDERED: SODIUM CHLORIDE 0.9% 250ML 250 ML ONE (15:28)
[2018-09-09] MEDS: CEFTRIAXONE SOD 1 GM/NS 50 ML 50 ML IV SCH (15:32)
[2018-09-09] MEDS ORDERED: BISACODYL 5 MG TAB EC PO ONE (16:00)
--- NOTE | 2018-09-09 17:18 | Diagnostic Imaging Report ---
CT chest with enhancement CPT code: 70749 INDICATION: Pulmonary nodules on abdominal CT TECHNIQUE: 5 mm collimation axial images obtained from the thoracic inlet to the level of the diaphragm following uneventful administration of 100 cc of low osmolar, nonionic intravenous contrast. RADIATION DOSE: Total DLP: 5-1.64 mGy*cm Estimated effective dose: (DLP x 0.015 x size factor) mSv CTDIvol has been reviewed. It is below the limits set by the Radiation Protocol Committee (RPC). Dose reduction techniques used: Automated exposure control, adjustment of the mAs and/or kVp according to patient size, standardized low-dose protocol, and/or iterative reconstruction technique. Comparison: CT abdomen 09/08/2018. CHEST FINDINGS: Images are motion degraded. Lymph nodes: Multiple enlarged right axillary lymph nodes. A telemarketing representative lymph node measures 1.4 x 1.7 cm. Right supraclavicular lymph node measures 10 mm. A left supraclavicular lymph node measures 12 mm in short axis. No enlarged left axillary lymph nodes. Mediastinal lymph nodes are enlarged. For example, a precarinal lymph node measures 10 mm in short axis. A lymph node in the anterior mediastinum measures 1.1 x 1.2 cm. Subcarinal lymph node measures 9 mm in short axis. No hilar lymphadenopathy. Cardiophrenic lymph nodes are mildly prominent. Distal periaortic lymph nodes are enlarged, measuring up to 1.2 x 1.0 cm. Thyroid: Visualized portions are normal. Mediastinum: Main pulmonary artery measures 3.2 cm in diameter without filling defects. The ascending aorta measures 3.9 cm. The heart is top normal in size. No pericardial effusion. The esophagus is collapsed. Lungs: Right Lung: Eventration of the right diaphragm is stable. There is atelectasis of the overlying lung. Nodule abutting the pleura in the anterior middle lobe measures 10 mm. Left Lung: Multiple scattered nodules. One defined nodule measures 10 mm and is located in the upper lobe. Pleura: Posterior layering pleural effusion measures 2.8 cm. ABDOMEN: The liver is enlarged and hypodense attenuating with multiple low attenuating solid masses. Visualized left upper quadrant is normal.. Bones: There are degenerative changes of the spine. Median sternotomy wires are intact. Flowing osteophytes in the thoracic spine suggestive of DISH. No lytic or blastic lesions. Soft tissues: Incompletely imaged lobulated enhancing soft tissue mass in the right breast (image 30). The left breast is absent. IMPRESSION: 1. Right breast mass concerning for carcinoma with right axillary, bilateral supraclavicular, and mediastinal lymphadenopathy. 2. Bilateral pulmonary nodules and multiple masses in the liver concerning for metastasis. 3. Right pleural effusion. 4. Pulmonary artery hypertension. Tortuous aorta. Signed by: Dr. Deandre Lorenzo MD on 09/09/2018 5:15 PM
--- NOTE | 2018-09-09 18:14 | Consultation ---
DATE OF CONSULTATION: Pulmonary Critical Care Consultation CHIEF COMPLAINT: Pulmonary nodules, history of breast cancer, and abnormal liver tests. HISTORY OF PRESENT ILLNESS: The patient is a 58-year-old woman. She had a diagnosis of breast cancer several years ago. She required a mastectomy. She also received chemotherapy. She is now on Arimidex. She is followed by Dr. Waldrop of Oncology and seems to be stable from an oncologic point of view. The patient reports increased abdominal bloating and discomfort. She notes worsening fatigue and decreased appetite. There are no fevers. She went to her primary physician and received some antibiotics for UTI, but has not improved. She came to the emergency department, was found to have abnormal liver function tests. Subsequent CT scan of the chest showed hepatomegaly and steatosis. She also had some pulmonary nodules in her lower lung gracia. PAST SURGICAL HISTORY: 1. Status post bioprosthetic aortic valve. 2. Status post left mastectomy. 3. Status post partial right mastectomy. FAMILY HISTORY: History of diabetes. SOCIAL HISTORY: The patient has never been a smoker. The patient is not a drinker. She lives in [place]. She has good family support. ALLERGIES: THERE ARE NO KNOWN DRUG ALLERGIES. REVIEW OF SYSTEMS: No fever. No headache. The patient does not have any neck pain. There is no chest pain. She is not complaining of dyspnea or cough. She does note abdominal distention and some mild nausea. She has no leg edema. PHYSICAL EXAMINATION: VITAL SIGNS: The patient is afebrile. The blood pressure is 114/60 and the pulse is 89. Saturation is 94% on room air. HEENT: Shows no facial swelling or erythema. The oropharynx is normal. LYMPHATIC: Shows no submandibular, cervical, or supraclavicular adenopathy. CARDIAC: Reveals regular rate and rhythm with normal S1, S2. There are no murmurs or rubs heard. LUNGS: Auscultation of lungs reveals clear breath sounds bilaterally. There is no wheezing. ABDOMEN: Soft. There is some mild ascites. There is no rebound or guarding. EXTREMITIES: Show no leg edema or calf tenderness. There is no cyanosis or clubbing. SKIN: Shows no rashes. NEUROLOGICAL: Shows no focal abnormalities. LABORATORY DATA: White blood cell count is 8.7 and hemoglobin is 12.2. The platelet count is 210. The total bilirubin is 6.5, and the AST is 712. The ALT is 210. The alkaline phosphatase is 419, and the albumin is 2.2. The creatinine is 1.04. RADIOGRAPHIC DATA: CT scan of the abdomen and pelvis shows hepatomegaly with probable steatosis. There is some mild ascites and right pleural effusion. There are some possible pulmonary nodules in the lower lung gracia. IMPRESSION: 1. Multiple pulmonary nodules of unclear etiology. 2. Acute liver injury of mixed cholestatic and hepatocellular patterns. 3. Diabetes. 4. Prior aortic valve replacement. PLAN: 1. CT scan of the chest today to assess the pulmonary nodules. They should be compared to a prior CT scan from 2013 that did show some pulmonary nodules in the lower lung gracia. 2. Hepatology evaluation. 3. Head of bed as tolerated. MD RADHA Allred/RDL /[id number]
--- NOTE | 2018-09-09 19:10 | NUR ---
PATIENT ALERT AND ORIENTED, CHANGE IF SHIFT REPORT GIVEN TO LARRY NGUYEN.
[2018-09-09] MEDS ORDERED: ATORVASTATIN 20 MG TAB PO SCH (21:00)
[2018-09-09] MEDS ORDERED: SODIUM CHLORIDE 0.9% 50ML 50 ML ONE (22:37)
[2018-09-09] MEDS ORDERED: IOPAMIDOL 370 MG/ML 200 ML INFUS..BTL INJ ONE (22:37)
[2018-09-10] VITALS (8 sets, daily range): BP systolic 112–125; BP diastolic 58–66
[2018-09-10 04:01] LABS: BASOPHILS # (AUTO) 0.1 (0.0-0.1); BASOPHILS % 0.5 % (0.0-1.0); EOSINOPHILS % 0.3 % (0.0-6.0); HEMATOCRIT 38.1 % (34.2-44.1); HEMOGLOBIN 12.8 g/dL (12.0-16.0); LYMPHOCYTES # (AUTO) 2.2 (1.0-3.2); LYMPHOCYTES % 22.5 % (18.0-39.1); MEAN CORPUSCULAR HEMOGLOBIN 28.7 pg (28-32); MEAN CORPUSCULAR HGB CONC 33.6 g/dL (31-35); MEAN CORPUSCULAR VOLUME 85.4 fL (81-99); MONOCYTES # (AUTO) 0.6 (0.2-0.8); MONOCYTES % 6.3 % (4.4-11.3); NEUTROPHILS # (AUTO) 6.5 (2.1-6.9); NEUTROPHILS % 66.9 % (38.7-80.0); PLATELET COUNT 207 x10e3/uL (140-360); RED BLOOD COUNT 4.46 x10e6/uL (3.6-5.1)
[2018-09-10 04:21] LABS: ANION GAP 22.2 mmol/L (8-16); CALCIUM 10.7 mg/dL (8.4-10.2); MAGNESIUM 1.4 MG/DL (1.3-2.1); POTASSIUM 4.2 mmol/L (3.5-5.1)
[2018-09-10 04:22] LABS: B-TYPE NATRIURETIC PEPTIDE2 65.6 pg/mL (0-100)
[2018-09-10 04:43] LABS: FREE T4 (FREE THYROXINE) 1.28 ng/dL (0.8-1.8); THYROID STIMULATING HORMONE 0.828 uIU/mL (0.350-4.940)
[2018-09-10 06:49] LABS: LYMPHOCYTES % (MANUAL) 20 % (19-48); MONOCYTES % (MANUAL) 6 % (3.4-9.0); NEUTROPHILS % (MANUAL) 74 % (40-74)
[2018-09-10 06:50] LABS: ANISOCYTOSIS S; PLATELET ESTIMATE ADEQUATE; PLATELET MORPHOLOGY COMMENT NORMAL; POIKILOCYTOSIS S; POLYCHROMASIA S; RBC MORPHOLOGY COMMENT NORMAL
--- NOTE | 2018-09-10 07:18 | NUR ---
Rcvd patient in report this am. Patient is asleep in bed at this time. No s/s of distress noted
[2018-09-10 07:52] LABS: ALBUMIN 2.3 g/dL (3.5-5.0); BILIRUBIN,DIRECT 6.1 mg/dL (0.0-0.5)
[2018-09-10] MEDS ORDERED: BISACODYL 5 MG TAB EC PO NR (08:30)
[2018-09-10 09:18] LABS: INR 1.06; PROTHROMBIN TIME 14.3 seconds (11.9-14.5)
--- NOTE | 2018-09-10 09:30 | NUR ---
Patient is AAOx3. Japanese speaking mostly. Lung gracia clear to auscultation. Bowel sounds present x4. Patient c/o nausea. PRN meds given. Patient ambulates on her own. No c/o pain. Family remain at bedside. Right AC IV in place.
[2018-09-10] MEDS: MELOXICAM 7.5 MG TAB PO SCH (09:56)
[2018-09-10] MEDS: POTASSIUM CHLORIDE 20 MEQ TAB CR PO SCH (09:56)
[2018-09-10] MEDS: FUROSEMIDE 40 MG TAB PO SCH (09:56)
[2018-09-10] MEDS: ONDANSETRON HCL INJ 2MG/ML 2ML 2 MG/ML VIAL IV PRN ×2 (09:56→15:43)
[2018-09-10] MEDS: ANASTROZOLE 1 MG TAB PO SCH (09:56)
--- NOTE | 2018-09-10 10:54 | Progress Note ---
DATE: SUBJECTIVE: The patient had a CT scan yesterday that showed a recurrent breast mass along with liver metastases and pulmonary nodules. PHYSICAL EXAMINATION: VITAL SIGNS: The blood pressure is 118/58 and the saturation is 96%. HEENT: Shows no facial swelling or erythema. CARDIAC: Reveals regular rate and rhythm with normal S1 and S2. There are no murmurs or rubs heard. LUNGS: Auscultation of lungs shows clear breath sounds bilaterally. There is no wheezing. ABDOMEN: Soft, nontender. There is no rebound or guarding. EXTREMITIES: Shows no leg edema or calf tenderness. There is no cyanosis or clubbing. SKIN: Shows no rashes. IMPRESSION: 1. Recurrent breast cancer with lung and liver metastases. 2. Acute liver injury of mixed cholestatic and hepatocellular pattern. 3. Diabetes. 4. Prior aortic valve replacement. PLAN: 1. Discussed further therapy with Oncology. The patient was seen as an outpatient by Dr. Waldrop, but apparently has not had a recent CT scan or PET scan as an outpatient. 2. Continue to monitor liver function. 3. PT and INR. 4. Out of bed as tolerated. Edenilson Ware MD LMH/JOYCE /[id number]
[2018-09-10] MEDS: D5NS/KCL 20MEQ 1,000 ML IV SCH (15:30)
[2018-09-10] MEDS: CEFTRIAXONE SOD 1 GM/NS 50 ML 50 ML IV SCH (15:31)
--- NOTE | 2018-09-10 15:44 | NUR ---
Spoke with Dr. Waldrop's office regarding records release and they informed that they did get it and would fax over after clinic
--- NOTE | 2018-09-10 19:54 | NUR ---
DR. MOSS DOING ROUNDS. NEW ORDER RCV FOR LACTULOSE Q6HR PRN FOR CONSTIPATION.
[2018-09-10] MEDS ORDERED: LACTULOSE SYRUP 20 GM/30 ML UDC PO PRN (20:00)
[2018-09-10] MEDS ORDERED: ATORVASTATIN 40 MG TAB PO SCH (21:00)
[2018-09-11 00:12] VITALS: BP 115/55
--- NOTE | 2018-09-11 03:33 | NUR ---
Pt son (Victor Hugo) refused labs to be drawn and stated "she's been though a lot already, we just want her to be comfortable". Pt son also informed this nurse that the family has decided not to proceed with the biopsy and that they will discuss it with MD.
[2018-09-11] MEDS: D5NS/KCL 20MEQ 1,000 ML IV SCH (04:00)
--- NOTE | 2018-09-11 04:02 | Consultation ---
DATE OF CONSULTATION: 09/10/2018 REQUESTING PHYSICIAN: Lucio Hidalgo MD/Izzy Gandhi NP. CONSULTING PHYSICIAN: Jocelyne Harmon MD, Hematology-Oncology Service. REASON FOR CONSULTATION: Evaluation and management of the patient with known history of breast cancer. HISTORY OF PRESENTING ILLNESS: Ms. Moreno is a very pleasant 58-year-old female with known history of breast cancer for which she was initially presented back in 2010, subsequently underwent left-sided mastectomy and adjuvant chemotherapy. She did well until 2014 when she was presented with right-sided breast cancer and at that time, it was noted to be metastatic disease. She was treated with systemic chemotherapy for one year. In April of 2016, she developed CHF requiring an aortic wall replacement. She did not have any further chemotherapy. However, she has been started on Arimidex which she has been taking on a daily basis. Now, she has presented to the Emergency Department due to increased abdominal bloating and discomfort. She was also having worsening fatigue, tiredness, and decrease in appetite. In the emergency department, she underwent workup including CT scan of the chest, abdomen, and pelvis revealing right-sided breast mass along with right axillae, bilateral supraclavicular, and mediastinal lymphadenopathy. She also noted to have bilateral pulmonary nodules and multiple masses in the liver concerning for metastatic disease. CT scan of the abdomen also revealed retroperitoneal lymphadenopathy with largest lymph node measuring 4.5 cm. Now Hematology-Oncology has been consulted to assist with the management. Presently, the patient is lying comfortably in mild distress due to abdominal distention and bloating. PAST MEDICAL HISTORY: 1. Left-sided breast cancer, status post systemic chemotherapy in 2010. 2. Right-sided breast cancer, status post systemic chemotherapy for one year for metastatic disease. Finished in February 2016. 3. Bioprosthetic aortic valve replacement. PAST SURGICAL HISTORY: 1. Left-sided mastectomy. 2. Port placement. 3. Bioprosthetic aortic valve replacement. FAMILY HISTORY: Positive for diabetes mellitus. SOCIAL HISTORY: Denies history of smoking, alcohol use, or illicit drug use. She lives in [place]. ALLERGIES: NO KNOWN DRUG ALLERGIES. CURRENT MEDICATIONS: Reviewed as per electronic medical record. REVIEW OF SYSTEMS: 14-Point review of systems negative except as mentioned per history of present illness. PHYSICAL EXAMINATION: VITAL SIGNS: Reviewed as per electronic medical record. HEENT: PERRLA. Extraocular movements are intact. Head is atraumatic and normocephalic. NECK: Supple. CVS: S1 and S2 audible. RESPIRATORY: Decreased bilateral air entry. ABDOMEN: Positive bowel sounds, distended. EXTREMITIES: Positive edema. NEUROLOGIC: The patient is alert and awake. LABORATORY DATA: White blood cell count of 9.7, hemoglobin 12.8, hematocrit 38.1, and platelet 207. BUN 27 and creatinine 1.0. Total bilirubin 7.3, and direct bilirubin 6.1. ASSESSMENT AND PLAN: Ms. Moreno is a very pleasant 58-year-old female with history of recurrent breast cancer with metastatic disease. She was initially diagnosed back in 2010 on the left side. Subsequently underwent mastectomy followed by adjuvant chemotherapy. Apparently, she had recurrence in 2014 on the right side, which was metastatic disease requiring one year of systemic chemotherapy, which she finished in February 2016. Chemotherapy was discontinued due to worsening congestive heart failure, and need for aortic wall replacement, which was done in April 2016. Since then she has been on hormonal agent with Arimidex on a daily basis. Now, she has presented with worsening fatigue, tiredness, abdominal bloating, and not feeling well. In the emergency department, she underwent imaging revealing widely metastatic disease including multiple masses in the liver, extensive lymphadenopathy as well as pulmonary nodules. Now Hematology-Oncology has been consulted to assist with the management. I reviewed the records and discussed at length with the patient about her current disease and importance of further workup. The patient is Yi-speaking. Family has helped her to understand the disease process. Overall, this appeared to be widely metastatic breast cancer. She has markedly elevated LFTs including hyperbilirubinemia, this appears to be related to obstructive process due to multiple masses in the liver. GI has been consulted. Of note, the patient also has been started on antibiotics for presumed underlying sepsis. Less likely, increase in LFTs due to sepsis. However, need to rule out any additional etiology causing jaundice. Meanwhile, continue supportive care. I will also discuss case with Dr. Bui, who is the primary oncologist. Thank you for the consult. I will continue to be available. Please call with questions. Jocelyne Harmon MD IJ/MODL /[id number]
[2018-09-11 04:26] VITALS: BP 115/58
[2018-09-11] MEDS ORDERED: MORPHINE SULFATE 2 MG/ML SYR 1ML IV PRN (04:30)
[2018-09-11] MEDS ORDERED: FLUCONAZOLE 200 MG/100 ML 100 ML IV SCH (04:30)
[2018-09-11] MEDS ORDERED: LORAZEPAM INJ 2 MG/ML VIAL IV PRN (04:30)
--- NOTE | 2018-09-11 07:21 | NUR ---
Rcvd patient in report this am. Patient is asleep in bed at this time. No s/s of distress noted
[2018-09-11 08:01] VITALS: BP 105/60
--- NOTE | 2018-09-11 08:35 | NUR ---
CALLING INSURANCE TO DETERMINE IF HAS HOSPICE BENEFITS [phone]. PER JULIA THE PT DOES HAVE BENEFIT AT NO COST TO PT.
[2018-09-11] MEDS: FUROSEMIDE 40 MG TAB PO SCH (08:49)
[2018-09-11] MEDS: ANASTROZOLE 1 MG TAB PO SCH (08:49)
[2018-09-11] MEDS: POTASSIUM CHLORIDE 20 MEQ TAB CR PO SCH (08:49)
[2018-09-11] MEDS: MELOXICAM 7.5 MG TAB PO SCH (08:49)
[2018-09-11] MEDS: METOCLOPRAMIDE HCL 10 MG/2ML VIAL IV SCH ×2 (08:49→11:46)
--- NOTE | 2018-09-11 09:03 | NUR ---
SPOKE WITH FAMILY AND GAVE CHOICES OF HOSPICES, THEY SIGNED CHOICE FOR TRADITIONS. FILED IN CHART AND LET REP KNOW, SHE WILL BE HER TO MEET WITH FAMILY AT 1030.
[2018-09-11 09:10] VITALS: BP 105/60
[2018-09-11 11:37] VITALS: BP 107/60
[2018-09-11] MEDS: CEFTRIAXONE SOD 1 GM/NS 50 ML 50 ML IV SCH (14:30)
--- NOTE | 2018-09-11 14:49 | Progress Note ---
DATE: SUBJECTIVE: The patient has continued dyspnea. CT scan shows recurrent breast cancer with multiple metastases. PHYSICAL EXAMINATION: VITAL SIGNS: Stable. HEENT: Shows no facial swelling or erythema. CARDIAC: Reveals regular rate and rhythm with normal S1 and S2. There are no murmurs or rubs. LUNGS: Auscultation of lungs shows clear breath sounds bilaterally. There is no wheezing. ABDOMEN: Soft, nontender. There is no rebound or guarding. EXTREMITIES: Show no leg edema or calf tenderness. There is no cyanosis or clubbing. SKIN: Shows no rashes. NEUROLOGIC: Shows no focal abnormalities. IMPRESSION: 1. Recurrent breast cancer with lung and liver metastases. 2. Acute liver injury. 3. Diabetes. 4. Prior aortic valve replacement. PLAN: 1. The patient and the family have decided for palliative care. They are scheduled to go home on hospice. 2. Case management is currently making arrangements. Edenilson Ware MD LMH/JOYCE /[id number]
[2018-09-11 16:40] VITALS: BP 125/65
--- NOTE | 2018-09-11 17:18 | NUR ---
IV removed at this time. Pressure dressing applied. [facility] ambulance here at this time
--- NOTE | 2018-09-11 17:21 | NUR ---
Patient discharged from facility [facility]. [facility] via [facility]. Reviewed discharge paperwork with daughters, all prescriptions provided via hospice. No s/s of distress noted
--- NOTE | 2018-09-11 23:52 | Progress Note ---
DATE: 09/11/2018 CHIEF COMPLAINT: Patient with metastatic breast cancer and jaundice, admitted due to progressive weakness and not feeling well. OBJECTIVE: Vital signs are reviewed as per electronic medical record. LABORATORY DATA: Reviewed as per electronic medical record. ASSESSMENT AND PLAN: 1. Ms. Moreno is a very pleasant 58-year-old female with known history of recurrent breast cancer with metastatic disease. She was initially diagnosed in 2010 on the left side. Subsequently, underwent mastectomy followed by adjuvant chemotherapy. Apparently, she had recurrence in 2014 on the right side, which was metastatic disease requiring 1 year of systemic chemotherapy, which she finished in February 2016. Chemotherapy was discontinued. 2. Congestive heart failure, need for aortic valve replacement, which was done in April of 2016. Since then, she has been on hormonal agent with Arimidex on a daily basis. Now, she has presented with worsening fatigue, tiredness, abdominal bloating, not feeling well. In the emergency department, underwent a workup included a CT scan revealing metastatic disease including multiple masses in the liver, extensive lymphadenopathy as well as pulmonary nodules. 3. Overall appeared to be metastatic breast cancer. The patient has consented toward hospice care. I have discussed the case in detail with Dr. Waldrop, who is a primary oncologist. We will respect the patient's wishes if she elects to go for comfort measures. Thank you for the consult. We will continue to be available. Please call with questions. MD ROSEMARY Soto/MODL /[id number]
--- NOTE | 2018-09-12 18:15 | Discharge Summary ---
ADMISSION DIAGNOSES: Transaminitis, pulmonary nodules, type 2 diabetes, history of breast cancer, hyperlipidemia, hypertension, morbid obesity, arthritis, UTI present on admission, and hypercalcemia. DISCHARGE DIAGNOSES: Transaminitis, pulmonary nodules, type 2 diabetes, history of breast cancer, hyperlipidemia, hypertension, morbid obesity, arthritis, UTI present on admission, and hypercalcemia. Apparent cancer mets to the liver, lungs, abdomen, and right breast with lymphadenopathy. HISTORY: The patient has a history of type 2 diabetes, hypertension, hyperlipidemia, breast cancer, and arthritis. SURGICAL HISTORY: AVR in April 2016, right partial mastectomy and left mastectomy. FAMILY HISTORY: The patient's sister and mom have diabetes. SOCIAL HISTORY: Noncontributory. HOSPITAL COURSE: A 58-year-old female complains of abdominal bloating since last . She went to her primary care to get antibiotics for UTI, but the antibiotics which was Augmentin caused GI upset, so she stopped taking it. She denies nausea, vomiting, diarrhea, and fever. She also complains of a poor appetite. On admission, the patient's lab showed transaminitis, so she was admitted. Ultrasound of the gallbladder showed hepatomegaly with increased echogenicity secondary to steatosis, mild ascites and right effusion, gallbladder wall thickening. CT of the abdomen and pelvis showed lymphadenopathy within the abdomen, scattered partially visualized pulmonary nodules, hepatomegaly with heterogeneous appearance likely reflective of steatosis, mild ascites, and right pleural effusion, gallbladder wall thickening. CT of the chest with contrast was ordered that showed a right breast mass concerning for carcinoma with right axillary bilateral supraclavicular and mediastinal lymphadenopathy, bilateral pulmonary nodules and multiple masses in the liver concerning for metastases, right pleural effusion, pulmonary artery hypertension. Urine culture came back positive for yeast and gram-negative bacillus. The patient was getting Rocephin and fluconazole. Hepatitis panel was ordered but still pending at time of discharge. Initially, the plan was for biopsy and the patient's oncologists was consulted. After speaking with IR and the patient's family, they decided that the patient did not want a biopsy and she wanted to go home with hospice instead. The hospice was arranged and she was discharged home with family. Vital signs stable. The patient is afebrile. The patient and family understand discharge instructions and agreed to plan. Dictated by Izzy Gandhi NP MD MEG [place]/JOYCE /[id number]
== END 2018-09-11 17:21 | disposition hospice, home (50) | DRG 872 ==
LOC: ER 11:41 → ERHOLD 17:21 → MED/SURG 18:18
PROVIDERS: ADMIT Internal Medicine; ATTEND Internal Medicine
DX: A41.9 Sepsis, unspecified organism (principal); S36.119A Unspecified injury of liver, initial encounter; J90 Pleural effusion, not elsewhere classified; R18.8 Other ascites; Z68.41 Body mass index [BMI] 40.0-44.9, adult; N39.0 Urinary tract infection, site not specified; C78.7 Secondary malignant neoplasm of liver and intrahepatic bile duct; C78.00 Secondary malignant neoplasm of unspecified lung; B37.49 Other urogenital candidiasis; C77.1 Secondary and unspecified malignant neoplasm of intrathoracic lymph nodes; R74.0 Nonspecific elevation of levels of transaminase and lactic acid dehydrogenase [LDH]; I10 Essential (primary) hypertension; E11.8 Type 2 diabetes mellitus with unspecified complications; E11.9 Type 2 diabetes mellitus without complications; E78.5 Hyperlipidemia, unspecified; M19.90 Unspecified osteoarthritis, unspecified site; Z95.2 Presence of prosthetic heart valve; Z90.13 Acquired absence of bilateral breasts and nipples; C50.911 Malignant neoplasm of unspecified site of right female breast; K76.0 Fatty (change of) liver, not elsewhere classified; Z66 Do not resuscitate; I27.20 Pulmonary hypertension, unspecified
CPT/HCPCS: 36415; 71260; 74177; 76705; 80048; 80053; 80076; 81001; 82150; 82306; 82948; 83036; 83690; 83735; 83880; 83970; 84439; 84443; 85025; 85610; 87086; 87186; 96361; 97139; 99284; J0696; J1450; J2270; J2405; J2765; J7030; J7050; Q9967